=== PATIENT | male | born 1935 | race African-American/Black ===

== ENCOUNTER 2016-06-19 15:49 | Inpatient (IN) | payer MEDICARE, MEDICAID ==
[~2016-06-19] VITALS: Ht 188 cm; Wt 81.6 kg
[~2016-06-19 15:49] MED LIST: ARICEPT10 MG ORAL; BRIMONIDINE TART5 ML BOTH EYES; COSOPT1 DRO2 BOTH EYES; ISOPTO CARPINE1 DRO2 BOTH EYES; LACTULOSE20 GM/301 ORAL; LIPITOR20 MG ORAL; LUMIGAN2.5 ML BOTH EYES; MOM30 ML ORAL; MULTI-VITAMIN-1 EACH PO; NORVASC10 MG ORAL; RISPERDAL0.5 MG ORAL; TYLENOL325 MG ORAL; VASOTEC20 MG ORAL; VITAMIN C250 MG ORAL; ZINC SULFATE220 M1 ORAL; ZOLOFT100 MG ORAL
--- NOTE | 2016-06-19 16:47 | Diagnostic Imaging Report ---
Indication: Shortness of breath Technique: Single portable AP view of the chest. Findings: Comparison: None. Fusion hardware lower cervical spine. Aortic arch calcified. The bones and extra pulmonary soft tissues, cardiomediastinal silhouette, pulmonary vasculature and parenchyma, and pleural surfaces are otherwise unremarkable. IMPRESSION: No evidence of acute cardiopulmonary disease Chronic changes as described.
[2016-06-19] MEDS ORDERED: Albuterol ud Inhalation HHN ONE (17:00)
[2016-06-19] MEDS ORDERED: Solu-MEDROL 125mg Inj IVP ONE (17:00)
--- NOTE | 2016-06-19 17:03 | Emergency Room Report ---
History of Present Illness General Chief Complaint: Upper Respiratory Illness Source: Patient, EMS Present Illness HPI Patient presents with complaints of shortness of breath symptoms ongoing And worsening for the past several days Patient has a history of COPD at this time denies any chest pain Denies any back or flank pain Patient feels more short of breath with any exertion Denies any change with position Denies any fevers or chills Allergies: Coded Allergies: No Known Allergies (Unverified , 02/20/15) Patient History Past Medical History: see triage record Pertinent Family History: none Reviewed Nursing Documentation: PMH: Agreed, PSxH: Agreed Nursing Documentation-PMH Past Medical History: No History, Except For Hx Hypertension: Yes Hx COPD: Yes Hx Neurological Problems: Yes - CVA Hx Cerebrovascular Accident: Yes Hx Dementia: Yes Hx Encephalitis: Yes - encephalopathy Review of Systems All Other Systems: negative except mentioned in HPI Physical Exam Vital Signs Date Time Temp Pulse Resp B/P Pulse Ox O2 Delivery O2 Flow Rate FiO2 06/19/16 15:53 98.1 53 16 145/76 100 Room Air Sp02 EP Interpretation: reviewed, normal General Appearance: mild distress - appeared mildly short of breath Head: normocephalic, atraumatic Eyes: bilateral eye EOMI, bilateral eye PERRL ENT: hearing grossly normal, normal pharynx, TMs + canals normal, uvula midline Neck: full range of motion, supple, no meningismus, no bony tend Respiratory: no rhonchi, no retraction, no accessory muscle use, crackles - And wheezing bilateral lower lobes Cardiovascular #1: normal peripheral pulses, regular rate, rhythm, no edema, no gallop, no JVD, no murmur Gastrointestinal: normal bowel sounds, non tender, soft, no mass, no organomegaly, non-distended, no guarding, no hernia, no pulsatile mass, no rebound Genitourinary: no CVA tenderness Musculoskeletal: other - Patient has a pressure ulcer dressing in both feet and heels, is bed bound 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, motor strength/tone normal, sensory intact Psychiatric: mood/affect normal Skin: warm/dry, palpation normal Lymphatic: normal inspection, no adenopathy Medical Decision Making Diagnostic Impression: Primary Impression: COPD exacerbation ER Course Patient is a fairly complex patient with multiple differential to consideration including but not limited to cardiac cardiopulmonary and vascular emergencies Patient continued with a fine wheezing Feel short of breath Given the history and comorbidities Patient was admitted for further inpatient care Labs Test 06/19/16 16:45 White Blood Count 5.0 K/UL (4.8-10.8) Red Blood Count 4.45 M/UL (4.70-6.10) Hemoglobin 13.1 G/DL (14.2-18.0) Hematocrit 38.1 % (42.0-52.0) Mean Corpuscular Volume 86 FL (80-99) Mean Corpuscular Hemoglobin 29.4 PG (27.0-31.0) Mean Corpuscular Hemoglobin Concent 34.3 G/DL (32.0-36.0) Red Cell Distribution Width 15.5 % (11.6-14.8) Platelet Count 138 K/UL (150-450) Mean Platelet Volume 8.4 FL (6.5-10.1) Neutrophils (%) (Auto) 38.9 % (45.0-75.0) Lymphocytes (%) (Auto) 43.5 % (20.0-45.0) Monocytes (%) (Auto) 9.5 % (1.0-10.0) Eosinophils (%) (Auto) 6.0 % (0.0-3.0) Basophils (%) (Auto) 2.2 % (0.0-2.0) Prothrombin Time 10.7 SEC (9.30-11.50) Prothromb Time International Ratio 1.1 (0.9-1.1) Activated Partial Thromboplast Time 36 SEC (23-33) Sodium Level 134 mEQ/L (135-145) Potassium Level 4.6 mEQ/L (3.4-4.9) Chloride Level 96 mEQ/L (98-107) Carbon Dioxide Level 22 mEQ/L (20-30) Anion Gap 16 (5-15) Blood Urea Nitrogen 20 mg/dL (7-23) Creatinine 0.9 mg/dL (0.7-1.2) Estimat Glomerular Filtration Rate mL/min (>60) Glucose Level 101 mg/dL (74-106) Calcium Level 9.3 mg/dL (8.6-10.2) Total Bilirubin 0.1 mg/dL (0.0-1.2) Aspartate Amino Transf (AST/SGOT) 15 U/L (5-40) Alanine Aminotransferase (ALT/SGPT) 10 U/L (3-41) Alkaline Phosphatase 116 U/L (40-129) Total Creatine Kinase 69 U/L (26-140) Creatine Kinase MB < 1.5 ng/mL (< 6.7) Creatine Kinase MB Relative Index Troponin I < 0.30 ng/mL (<=0.30) Pro-B-Type Natriuretic Peptide 56 pg/mL (0-450) Total Protein 6.4 g/dL (6.6-8.7) Albumin 3.6 g/dL (3.5-5.2) Globulin 2.8 g/dL Albumin/Globulin Ratio 1.2 (1.0-2.7) Lipase 16 U/L (< 60) Rhythm Strip Diag. Results EP Interpretation: yes Rate: 67 Rhythm: NSR, no PVC's, no ectopy Chest X-Ray Diagnostic Results EP Interpretation: Yes Findings: no consolidation, no effusion, no pneumothorax Number of Views: 1 Last Vital Signs Date Time Temp Pulse Resp B/P Pulse Ox O2 Delivery O2 Flow Rate FiO2 06/19/16 15:53 98.1 53 16 145/76 100 Room Air Status: improved Disposition: ADMITTED INPATIENT Condition: Serious Referrals: SAVAGE MORRIS (PCP) LESLIE RDZ D.O. June 19, 2016 17:03
[2016-06-19 17:18] LABS: BASOPHILS % (AUTO) 2.2 % (0.0-2.0); LYMPHOCYTES % (AUTO) 43.5 % (20.0-45.0); MEAN CORPUSCULAR HEMOGLOBIN 29.4 PG (27.0-31.0); MEAN CORPUSCULAR HGB CONC 34.3 G/DL (32.0-36.0); MEAN CORPUSCULAR VOLUME 86 FL (80-99); MEAN PLATELET VOLUME 8.4 FL (6.5-10.1); MONOCYTES % (AUTO) 9.5 % (1.0-10.0); NEUTROPHILS % (AUTO) 38.9 % (45.0-75.0); PLATELET COUNT 138 K/UL (150-450); RED BLOOD COUNT 4.45 M/UL (4.70-6.10); RED CELL DISTRIBUTION WIDTH 15.5 % (11.6-14.8)
[2016-06-19 17:29] LABS: INR 1.1 (0.9-1.1); PROTHROMBIN TIME 10.7 SEC (9.30-11.50)
[2016-06-19] MEDS ORDERED: AMLODIPINE BES2.5 MG ORAL (17:31)
[2016-06-19] MEDS ORDERED: ASCORBIC ACID500 MG ORAL (17:31)
[2016-06-19] MEDS ORDERED: DEPAKOTE250 MG PO (17:34)
[2016-06-19] MEDS ORDERED: ZYPREXA10 MG ORAL (17:34)
[2016-06-19 17:37] LABS: TROPONIN I < 0.30 ng/mL (<=0.30)
[2016-06-19 18:02] LABS: CKMB < 1.5 ng/mL (< 6.7)
[2016-06-19 18:03] LABS: ANION GAP 16 (5-15); CARBON DIOXIDE 22 mEQ/L (20-30); CHLORIDE 96 mEQ/L (98-107); POTASSIUM 4.6 mEQ/L (3.4-4.9); SODIUM 134 mEQ/L (135-145)
[2016-06-19 18:04] LABS: ALANINE AMINOTRANSFERASE 10 U/L (3-41); ASPARTATE AMINO TRANSFERASE 15 U/L (5-40); CALCIUM 9.3 mg/dL (8.6-10.2); CREATININE 0.9 mg/dL (0.7-1.2)
[2016-06-19 18:05] LABS: ALBUMIN/GLOBULIN RATIO 1.2 (1.0-2.7); HEMOLYSIS 97; LIPASE 16 U/L (< 60); TOTAL PROTEIN 6.4 g/dL (6.6-8.7)
[2016-06-19 20:12] VITALS: BP 122/62
[2016-06-19 21:09] VITALS: BP 133/66
[2016-06-19] MEDS ORDERED: LORazepam Inj 2mg/ml 1ml IV PRN (21:45)
[2016-06-19] MEDS ORDERED: Promethazine/Codeine 5ml UD ORAL PRN (21:45)
[2016-06-19] MEDS ORDERED: DuoNeb 0.5-3(2.5)mg/3ml neb HHN PRN (21:45)
[2016-06-19] MEDS ORDERED: Morphine Sulfate 2mg/ml Inj IVP PRN (21:45)
[2016-06-19] MEDS ORDERED: Ketorolac 30mg Inj IV PRN (21:45)
[2016-06-19] MEDS ORDERED: Nitroglycerin Subl 0.4mg tab (Bottle Of 25) SL PRN (21:45)
[2016-06-19] MEDS ORDERED: Zosyn 3.375gm inj ONE (23:13)
[2016-06-19] MEDS: Piperacillin/Tazobactam 3.375 GM in D5W 110 ML IVPB SCH (23:24)
[2016-06-19] MEDS: Solu-MEDROL 125mg Inj IV SCH (23:25)
[2016-06-20] VITALS: BP 134/54
[2016-06-20 04:00] VITALS: BP 148/76
[2016-06-20] MEDS ORDERED: Zosyn 3.375gm inj ONE (05:44)
[2016-06-20] MEDS: Piperacillin/Tazobactam 3.375 GM in D5W 110 ML IVPB SCH ×2 (05:49→13:07)
[2016-06-20] MEDS: Solu-MEDROL 125mg Inj IV SCH ×4 (05:49→23:42)
[2016-06-20 07:48] VITALS: BP 152/65
[2016-06-20] MEDS: Sertraline 100mg tab ORAL SCH (08:20)
[2016-06-20] MEDS: Lactulose 20gm/30ml UDC ORAL SCH ×2 (08:20→17:37)
[2016-06-20] MEDS: Theophylline ER 100mg ORAL SCH ×2 (08:21→21:30)
[2016-06-20] MEDS: Donepezil 10mg tab ORAL SCH (08:21)
[2016-06-20] MEDS: Heparin 5000 units/ml inj SUBQ SCH ×2 (09:00→21:29)
[2016-06-20] MEDS: Brimonidine 0.2% Opth Sol BOTH EYES SCH ×2 (09:07→17:37)
[2016-06-20 11:26] VITALS: BP 136/62
--- NOTE | 2016-06-20 14:35 | Infectious Diseases Prog Note ---
Assessment/Plan Problems: (1) Foot ulcer Assessment & Plan: or the left heel, with infection of the soft tissue needs to rule out underlying osteomyelitis, will switch antibiotics to cefepime and flagyl, continue vancomycin, order MRI of the left foot to rule out osteomyelitis . (2) COPD exacerbation Assessment & Plan: on large dose of steroids, recommend to taper, continue bronchodialters and antibiotics, titrate oxygen as needed . (3) HTN (hypertension) Assessment & Plan: continue meds to keep SBP < 140 (4) Dementia Assessment & Plan: continue supportive care Subjective Allergies: Coded Allergies: No Known Allergies (Unverified , 02/20/15) Objective Vital Signs Last 24 Hour Vital Signs Date Time Temp Pulse Resp B/P Pulse Ox O2 Delivery O2 Flow Rate FiO2 06/20/16 11:26 97.3 65 14 136/62 96 Room Air 06/20/16 10:03 61 18 Room Air 06/20/16 08:21 59 152/65 06/20/16 07:48 97.5 59 15 152/65 97 Room Air 06/20/16 04:00 97.7 77 20 148/76 98 Room Air 06/20/16 00:00 97.5 66 20 134/54 98 Room Air 06/19/16 21:09 97.7 63 20 133/66 96 Room Air 06/19/16 20:12 97.8 64 16 122/62 95 Room Air 06/19/16 20:12 64 16 122/62 95 Room Air 06/19/16 17:56 66 18 100 Room Air 06/19/16 17:42 53 16 100 Room Air 06/19/16 17:39 55 18 Room Air 06/19/16 17:33 53 16 Room Air 06/19/16 15:53 98.1 53 16 145/76 100 Room Air Height (Feet): 6 Height (Inches): 2.00 Weight (Pounds): 180 Microbiology Date/Time Source Procedure Growth Status 06/19/16 22:30 Foot Left Gram Stain - Final Resulted 06/19/16 22:30 Foot Left Wound Culture Pending Resulted Laboratory Tests Test 06/19/16 16:45 White Blood Count 5.0 K/UL (4.8-10.8) Red Blood Count 4.45 M/UL (4.70-6.10) L Hemoglobin 13.1 G/DL (14.2-18.0) L Hematocrit 38.1 % (42.0-52.0) L Mean Corpuscular Volume 86 FL (80-99) Mean Corpuscular Hemoglobin 29.4 PG (27.0-31.0) Mean Corpuscular Hemoglobin Concent 34.3 G/DL (32.0-36.0) Red Cell Distribution Width 15.5 % (11.6-14.8) H Platelet Count 138 K/UL (150-450) L Mean Platelet Volume 8.4 FL (6.5-10.1) Neutrophils (%) (Auto) 38.9 % (45.0-75.0) L Lymphocytes (%) (Auto) 43.5 % (20.0-45.0) Monocytes (%) (Auto) 9.5 % (1.0-10.0) Eosinophils (%) (Auto) 6.0 % (0.0-3.0) H Basophils (%) (Auto) 2.2 % (0.0-2.0) H Prothrombin Time 10.7 SEC (9.30-11.50) Prothromb Time International Ratio 1.1 (0.9-1.1) Activated Partial Thromboplast Time 36 SEC (23-33) H Sodium Level 134 mEQ/L (135-145) L Potassium Level 4.6 mEQ/L (3.4-4.9) Chloride Level 96 mEQ/L (98-107) L Carbon Dioxide Level 22 mEQ/L (20-30) Anion Gap 16 (5-15) H Blood Urea Nitrogen 20 mg/dL (7-23) Creatinine 0.9 mg/dL (0.7-1.2) Estimat Glomerular Filtration Rate mL/min (>60) Glucose Level 101 mg/dL (74-106) Calcium Level 9.3 mg/dL (8.6-10.2) Total Bilirubin 0.1 mg/dL (0.0-1.2) Aspartate Amino Transf (AST/SGOT) 15 U/L (5-40) Alanine Aminotransferase (ALT/SGPT) 10 U/L (3-41) Alkaline Phosphatase 116 U/L (40-129) Total Creatine Kinase 69 U/L (26-140) Creatine Kinase MB < 1.5 ng/mL (< 6.7) Creatine Kinase MB Relative Index Troponin I < 0.30 ng/mL (<=0.30) Pro-B-Type Natriuretic Peptide 56 pg/mL (0-450) Total Protein 6.4 g/dL (6.6-8.7) L Albumin 3.6 g/dL (3.5-5.2) Globulin 2.8 g/dL Albumin/Globulin Ratio 1.2 (1.0-2.7) Lipase 16 U/L (< 60) Current Medications Medications (Trade) Dose Ordered Sig/Shanita Route PRN Reason Start Time Stop Time Status Last Admin Dose Admin Albuterol/ Ipratropium (DuoNeb 0.5-3(2.5)mg/3ml) 3 ml EVERY 4 HOURS PRN HHN dyspnea 06/19/16 21:45 06/24/16 21:44 Amlodipine Besylate (Norvasc) 7.5 mg DAILY ORAL 06/20/16 09:00 07/20/16 08:59 06/20/16 08:21 Brimonidine Tartrate (Alphagan) 1 drop BID BOTH EYES 06/20/16 09:00 07/20/16 08:59 06/20/16 09:07 Cefepime HCl/ Dextrose (Maxipime/D5W) 55 ml @ 110 mls/hr EVERY 12 HOURS IVPB 06/20/16 21:00 06/27/16 20:59 Dextrose STAT PRN IV Hypoglycemia 06/19/16 21:45 07/19/16 21:44 Divalproex Sodium (Depakote) 250 mg Q12HR ORAL 06/20/16 09:00 07/20/16 08:59 06/20/16 08:20 Donepezil HCl (Aricept) 10 mg DAILY ORAL 06/20/16 09:00 07/20/16 08:59 06/20/16 08:21 Heparin Sodium (Porcine) (Heparin 5000 units/ml) 5,000 units EVERY 12 HOURS SUBQ 06/20/16 09:00 07/20/16 08:59 Ketorolac Tromethamine (Toradol 30mg) 30 mg EVERY 8 HOURS PRN IV moderate pain 4-6 06/19/16 21:45 06/24/16 21:44 Lactulose (Cephulac) 20 gm BID ORAL 06/20/16 09:00 07/20/16 08:59 06/20/16 08:20 Lorazepam (Ativan 2mg/ml 1ml) 0.5 mg Q4H PRN IV For Anxiety 06/19/16 21:45 06/26/16 21:44 Methylprednisolone Sodium Succinate (Solu-MEDROL) 60 mg EVERY 6 HOURS IV 06/20/16 00:00 07/20/16 00:00 06/20/16 13:07 Metronidazole (Flagyl) 500 mg Q8HR ORAL 06/20/16 14:30 06/27/16 14:29 Morphine Sulfate (Morphine Sulfate) 2 mg EVERY 4 HOURS PRN IVP severe pain 7-10 06/19/16 21:45 06/26/16 21:44 Nitroglycerin (Ntg) 0.4 mg Q5M X 3 DOSES PRN SL Prn Chest Pain 06/19/16 21:45 07/19/16 21:44 Ondansetron HCl (Zofran) 4 mg Q6H PRN IVP Nausea & Vomiting 06/19/16 21:45 07/19/16 21:44 Promethazine HCl/ Codeine (Phenergan with Codeine) 5 ml EVERY 6 HOURS PRN ORAL cough 06/19/16 21:45 07/19/16 21:44 Sertraline HCl (Zoloft) 100 mg DAILY ORAL 06/20/16 09:00 07/20/16 08:59 06/20/16 08:20 Temazepam (Restoril) 15 mg HSPRN PRN ORAL Insomnia 06/19/16 21:45 06/26/16 21:44 Theophylline (Martínez-Dur) 100 mg EVERY 12 HOURS ORAL 06/20/16 09:00 07/20/16 08:59 06/20/16 08:21 Vancomycin HCl (Vanco rx to dose) 1 ea DAILY PRN MISC . 06/20/16 14:30 07/20/16 14:29 Vancomycin HCl 1 gm/Dextrose 275 ml @ 183.708 mls/hr Q12H IVPB 06/20/16 16:00 06/25/16 15:59 Leann Dubon M.D. June 20, 2016 14:35
--- NOTE | 2016-06-20 14:46 | Wound Care Consultation ---
Wound Assessment Wound Assessment : Wound Present on Admission: Yes New Wound: No Status Change of Wound: No Wound Location Body Site Modif: left Wound Location Body Site: heel Wound Type: pressure ulcer Becky Test: Does not Becky Pressure Ulcer Stage: IV/unstageable Wound Thickness: Full Thickness Wound Length: 2.5 Wound Width: 2.5 Wound Depth: utd Percent of Wound Bed Yellow/Wh: 100 Wound Drainage Description: Serosanguineous Wound Drainage Amount: Moderate Wound Drainage Odor: Mild Odor Tissue Surrounding Wound: Macerated Wound General Appearance: Draining Wound Comment #1 Left heel stage IV/unstageable pressure ulcer Recommendation -Left heel pressure ulcer Cleanse with saline, pat dry, apply Therahoney gel to wound bed, cover with 4x4 , secure with bordered gauze daily and PRN soiled/dislodged -Keep clean and dry -Turn and reposition -Low air loss overlay mattress -Optimize nutrition -Heel protector on both heels -Offload both heels -Assess and f/u accordingly for any changes AISHA CHAVARRIA RN June 20, 2016 14:46
[2016-06-20] MEDS: metroNIDAZOLE 500mg tab ORAL SCH ×2 (15:18→21:30)
[2016-06-20] MEDS: Vancomycin 1 GM in D5W 275 ML IVPB SCH (15:18)
[2016-06-20 15:40] VITALS: BP 144/76
[2016-06-20] MEDS ORDERED: Tubing IV Secondary IV ONE (16:20)
[2016-06-20] MEDS ORDERED: NS 275ml ONE (16:20)
[2016-06-20 20:00] VITALS: BP 125/58
[2016-06-20] MEDS: Cefepime HCl 1 GM in D5W 55 ML IVPB SCH (20:36)
--- NOTE | 2016-06-20 20:36 | Consultation ---
History of Present Illness General Date patient seen: June 20, 2016 Chief Complaint: Upper Respiratory Illness Referring physician: Dr. Hanson Reason for Consultation: COPD management Present Illness HPI 80 year old male with hx of COPD, [facility] presented to ER with complaints of shortness of breath, worsening for the past several days Patient feels more short of breath with any exertion. Denies any chest pain, fever. Allergies: Coded Allergies: No Known Allergies (Unverified , 02/20/15) Medication History Scheduled Amlodipine Besylate* (Amlodipine Besylate*), 7.5 MG ORAL DAILY, (Reported) Ascorbic Acid* (Ascorbic Acid*), 500 MG ORAL DAILY, (Reported) Brimonidine Tartrate* (Alphagan*), 1 DROP BOTH EYES BID, (Reported) Divalproex Sodium* (Depakote*), 250 MG PO Q12HR, (Reported) Donepezil Hcl* (Aricept*), 10 MG ORAL HS, (Reported) Lactulose (Lactulose*), 30 ML ORAL BID, (Reported) Olanzapine* (Zyprexa*), 10 MG ORAL BID, (Reported) Sertraline Hcl* (Zoloft*), 100 MG ORAL DAILY, (Reported) Miscellaneous Medications Dorzolamide HCl/Timolol Maleat (Dorzolamide-Timolol Eye Drops), 1 DROP BOTH EYES , (Reported) Multivit-Min/Iron Fum/Folic AC (Kosta-Evvgscr-Dxnudsbn Tablet), 1 EACH PO, ( Reported) Discontinued Medications Acetaminophen (Tylenol), 650 MG ORAL Q4HR PRN for Fever/Headache/Mild Pain, ( Reported) Discontinued Reason: MD discontinued med Ascorbic Acid* (Vitamin C*), 250 MG ORAL TWICE A DAY, (Reported) Discontinued Reason: Medication dose changed Atorvastatin Calcium* (Lipitor*), 20 MG ORAL BEDTIME, (Reported) Discontinued Reason: MD discontinued med Bimatoprost (Lumigan), 1 DROP BOTH EYES DAILY, (Reported) Discontinued Reason: MD discontinued med Enalapril Maleate* (Vasotec*), 40 MG ORAL DAILY, (Reported) Discontinued Reason: MD discontinued med Magnesium Hydroxide (Milk of Magnesia), 30 ML ORAL DAILY, (Reported) Discontinued Reason: MD discontinued med Pilocarpine (Pilocarpine HCl), 1 DROP BOTH EYES BID, (Reported) Discontinued Reason: MD discontinued med Risperidone* (Risperdal*), 0.5 MG ORAL HS, (Reported) Discontinued Reason: discontinued med Zinc Sulfate (Zinc Sulfate*), 220 MG ORAL DAILY, (Reported) Discontinued Reason: MD discontinued med Patient History Healthcare decision maker pt A&Ox4 Resuscitation status Full Code Advanced Directive on File Past Medical/Surgical History Past Medical/Surgical History: (1) HTN (hypertension) (2) Dementia Review of Systems All Other Systems: negative except mentioned in HPI Physical Exam General Appearance: WD/WN Lines, tubes and drains: peripheral HEENT: normocephalic, atraumatic Neck: non-tender, normal alignment Respiratory/Chest: chest wall non-tender, lungs clear Cardiovascular/Chest: normal peripheral pulses, normal rate Abdomen: normal bowel sounds Genitourinary/Rectal: normal genital exam Extremities: normal range of motion Skin Exam: normal pigmentation 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 Last 24 Hour Vital Signs Date Time Temp Pulse Resp B/P Pulse Ox O2 Delivery O2 Flow Rate FiO2 06/20/16 20:00 97.5 62 20 125/58 95 Room Air 06/20/16 19:50 58 18 Room Air 06/20/16 15:40 97.0 71 15 144/76 98 Room Air 06/20/16 11:26 97.3 65 14 136/62 96 Room Air 06/20/16 10:03 61 18 Room Air 06/20/16 08:21 59 152/65 06/20/16 07:48 97.5 59 15 152/65 97 Room Air 06/20/16 04:00 97.7 77 20 148/76 98 Room Air 06/20/16 00:00 97.5 66 20 134/54 98 Room Air 06/19/16 21:09 97.7 63 20 133/66 96 Room Air Intake and Output 06/19/16 06/20/16 19:00 07:00 Intake Total 257.5 ml Balance 257.5 ml Intake Oral 120 ml IV Total 137.5 ml # Voids 1 Microbiology Date/Time Source Procedure Growth Status 06/19/16 22:30 Foot Left Gram Stain - Final Resulted 06/19/16 22:30 Foot Left Wound Culture Pending Resulted Height (Feet): 6 Height (Inches): 2.00 Weight (Pounds): 180 Medications Current Medications Medications (Trade) Dose Ordered Sig/Shanita Route PRN Reason Start Time Stop Time Status Last Admin Dose Admin Albuterol/ Ipratropium (DuoNeb 0.5-3(2.5)mg/3ml) 3 ml EVERY 4 HOURS PRN HHN dyspnea 06/19/16 21:45 06/24/16 21:44 Amlodipine Besylate (Norvasc) 7.5 mg DAILY ORAL 06/20/16 09:00 07/20/16 08:59 06/20/16 08:21 Brimonidine Tartrate (Alphagan) 1 drop BID BOTH EYES 06/20/16 09:00 07/20/16 08:59 06/20/16 17:37 Cefepime HCl/ Dextrose (Maxipime/D5W) 55 ml @ 110 mls/hr EVERY 12 HOURS IVPB 06/20/16 21:00 06/27/16 20:59 Dextrose STAT PRN IV Hypoglycemia 06/19/16 21:45 07/19/16 21:44 Divalproex Sodium (Depakote) 250 mg Q12HR ORAL 06/20/16 09:00 07/20/16 08:59 06/20/16 08:20 Donepezil HCl (Aricept) 10 mg DAILY ORAL 06/20/16 09:00 07/20/16 08:59 06/20/16 08:21 Heparin Sodium (Porcine) (Heparin 5000 units/ml) 5,000 units EVERY 12 HOURS SUBQ 06/20/16 09:00 07/20/16 08:59 Ketorolac Tromethamine (Toradol 30mg) 30 mg EVERY 8 HOURS PRN IV moderate pain 4-6 06/19/16 21:45 06/24/16 21:44 Lactulose (Cephulac) 20 gm BID ORAL 06/20/16 09:00 07/20/16 08:59 06/20/16 17:37 Lorazepam (Ativan 2mg/ml 1ml) 0.5 mg Q4H PRN IV For Anxiety 06/19/16 21:45 06/26/16 21:44 Methylprednisolone Sodium Succinate (Solu-MEDROL) 60 mg EVERY 6 HOURS IV 06/20/16 00:00 07/20/16 00:00 06/20/16 17:37 Metronidazole (Flagyl) 500 mg Q8HR ORAL 06/20/16 14:30 06/27/16 14:29 06/20/16 15:18 Morphine Sulfate (Morphine Sulfate) 2 mg EVERY 4 HOURS PRN IVP severe pain 7-10 06/19/16 21:45 06/26/16 21:44 Nitroglycerin (Ntg) 0.4 mg Q5M X 3 DOSES PRN SL Prn Chest Pain 06/19/16 21:45 07/19/16 21:44 Ondansetron HCl (Zofran) 4 mg Q6H PRN IVP Nausea & Vomiting 06/19/16 21:45 07/19/16 21:44 Promethazine HCl/ Codeine (Phenergan with Codeine) 5 ml EVERY 6 HOURS PRN ORAL cough 06/19/16 21:45 07/19/16 21:44 Sertraline HCl (Zoloft) 100 mg DAILY ORAL 06/20/16 09:00 07/20/16 08:59 06/20/16 08:20 Temazepam (Restoril) 15 mg HSPRN PRN ORAL Insomnia 06/19/16 21:45 06/26/16 21:44 Theophylline (Martínez-Dur) 100 mg EVERY 12 HOURS ORAL 06/20/16 09:00 07/20/16 08:59 06/20/16 08:21 Vancomycin HCl (Vanco rx to dose) 1 ea DAILY PRN MISC . 06/20/16 14:30 07/20/16 14:29 Vancomycin HCl 1 gm/Dextrose 275 ml @ 183.708 mls/hr Q12H IVPB 06/20/16 16:00 06/25/16 15:59 06/20/16 15:18 Assessment/Plan Problem List: (1) COPD exacerbation ICD Codes: J44.1 - Chronic obstructive pulmonary disease with (acute) exacerbation SNOMED: 034328544, 461764738 (2) HTN (hypertension) ICD Codes: I10 - Essential (primary) hypertension SNOMED: 86163721 (3) Dementia ICD Codes: F03.90 - Unspecified dementia without behavioral disturbance SNOMED: 34611224 Assessment/Plan respiratory treatment check sputum titrate fio2 to sat of 92% steroids dvt prophylaxis pt/ot ORACIO MIRANDA June 20, 2016 20:36
--- NOTE | 2016-06-20 21:49 | History and Physical Report ---
DATE OF ADMISSION: 06/19/2016 TIME: 1 p.m. CONSULTANTS: 1. Jef Johnson M.D. 2. Mouna Bruce M.D. CHIEF COMPLAINT: Increased shortness of breath, weakness, and confusion. BRIEF HISTORY: This is a 80-year-old male from [facility] presented with above-mentioned diagnoses and diagnoses of COPD exacerbation, encephalopathy, and congestion, admitted to medical floor for further care. Currently, calm, resting in bed, but no complaints. PAST MEDICAL HISTORY: Hypertension, COPD, and encephalopathy. PAST SURGICAL HISTORY: Back surgery. MEDICATIONS: Norvasc, Alphagan, Depakote, Aricept, Cephulac, heparin, Martínez-Dur, Solu-Medrol, and Zosyn. ALLERGIES: Denies. SOCIAL HISTORY: No smoking. No alcohol. No intravenous drug abuse. FAMILY HISTORY: Noncontributory. REVIEW OF SYSTEMS: No chest pain. Slight short of breath. No nausea, vomiting or diarrhea. PHYSICAL EXAMINATION: GENERAL: The patient is currently calm in bed, oriented x1, no acute distress. VITAL SIGNS: Temperature 97 degrees, pulse 55, respiratory rate 14, and blood pressure 136/62. CARDIOVASCULAR: No murmur. LUNGS: Poor air exchange. ABDOMEN: Positive bowel sounds. Nontender. Nondistended. EXTREMITIES: No cyanosis, clubbing, or edema. NEUROLOGIC: The patient moves all extremities, slightly weak. LABORATORY AND DIAGNOSTIC DATA: Hemoglobin 13 and platelet 138,000, otherwise CBC is normal. BMP shows sodium 134 and chloride 96, otherwise normal. Troponin is less than 0.3. INR is 1.1. PTT is 36. ASSESSMENT: 1. Shortness of breath. 2. Chronic obstructive pulmonary disease exacerbation. 3. Congestion. 4. Anemia. 5. Hypertension. 6. Encephalopathy. PLAN: O2 and pulmonary treatment. Antibiotics per Infectious Disease p.r.n. OT/PT. Dietary evaluation. CBC and BMP in the morning. Resume home medications. Blood pressure control and taper off steroids if possible. Dr. Johnson, Dr. Bruce and Dr. Dubon to consult. Vincent Hanson D.O. DR: FIFI JOB#: [id number] CC:
--- NOTE | 2016-06-20 23:48 | Consultation ---
DATE OF CONSULTATION: INFECTIOUS DISEASE CONSULTATION REQUESTING PHYSICIAN: Vincent Hanson D.O. REASON FOR CONSULTATION: Left heel wound infection. Recommendation for antibiotics therapy. HISTORY OF PRESENT ILLNESS: The patient is a 80-year-old male with past medical history of dementia, CVA, and COPD, was sent from [facility] facility for worsening shortness of breath and left ankle wound. The patient had history of COPD and lately he has been more short of breath. Denied any chest pain, did have cough, but nonproductive. No fever or chills. No nausea or vomiting. The patient had left heel wound, which has been getting bigger with pus and exudate in the base of the wound, so he was sent to the emergency room for further evaluation and management. I was asked by the primary provider for antibiotics recommendation and further management of his left heel wound infection. REVIEW OF SYSTEMS: A 12-point of system reviewed were all negative apart from the one I mentioned above in my History and Physical PAST MEDICAL HISTORY: Significant for hypertension, COPD, CVA, dementia, and encephalitis. PAST SURGICAL HISTORY: Unable to obtain. MEDICATIONS: He is on Zosyn and vancomycin by the admitting physician. For further details, please refer to MAR. ALLERGIES: He has no known drug allergy. SOCIAL HISTORY: He lives at the correction facility. No recent drugs, tobacco, or alcohol. FAMILY HISTORY: Not contributory. PHYSICAL EXAMINATION: VITAL SIGNS: Temperature 97.3 degrees, pulse 65, respirations 14, blood pressure 136/62, and pulse oximetry 96% on room air. GENERAL: This is an elderly male, lying in bed, awake, alert, not in distress. HEENT: Normocephalic and atraumatic. Pupils are reactive to light. Dry oral mucosa. Poor dental hygiene. NECK: Supple. No lymphadenopathy. CARDIOVASCULAR: Regular rate and rhythm. No murmurs. LUNGS: He had wheezing and diminished breathing sounds in the bases. ABDOMEN: Obese, soft, nontender, and nondistended. Positive bowel sounds. No hepatosplenomegaly or ascites. EXTREMITIES: He had muscle atrophy, left heel medial wound 2 x 2 cm stage III with pus, necrosis, and exudate in the base of the wound. LABORATORY AND DIAGNOSTIC DATA: Showed white count of 5, hemoglobin of 13.1, and platelet count of 138,000. BUN of 20, creatinine 0.9. AST of 15, ALT of 10, alkaline phosphatase of 116. Microbiology wound culture is pending. Imaging, chest x-ray showed no evidence of acute cardiopulmonary disease. ASSESSMENT AND PLAN: 1. Left heel wound infection due to rule out underlying osteomyelitis. We will switch antibiotics to cefepime and Flagyl. Continue vancomycin. Order MRI of the left foot to rule out osteomyelitis and sedimentation rate. 2. Chronic obstructive pulmonary disease exacerbation on large dose of steroid recommend to taper continue bronchodilators and antibiotics. Titrate oxygen as needed. 3. Hypertension. Continue medications to keep systolic blood pressure less than 140. 4. Dementia, continue supportive care and psychiatric medications as needed. Thank you for the consult. ID will continue to follow. Leann Dubon M.D. DR: Cheli JOB#: [id number] CC:
[2016-06-21] VITALS: BP_SYST 107; BP_SYST 135; BP_DIAS 76
[2016-06-21 04:00] VITALS: BP 127/62
[2016-06-21] MEDS: Vancomycin 1 GM in D5W 275 ML IVPB SCH ×2 (04:14→15:51)
[2016-06-21] MEDS: Solu-MEDROL 125mg Inj IV SCH ×3 (05:52→17:20)
[2016-06-21] MEDS: metroNIDAZOLE 500mg tab ORAL SCH ×3 (05:52→21:16)
[2016-06-21 07:11] LABS: ANION GAP 16 (5-15); CARBON DIOXIDE 22 mEQ/L (20-30); CHLORIDE 95 mEQ/L (98-107); HEMOLYSIS 2; MEAN CORPUSCULAR HEMOGLOBIN 27.5 PG (27.0-31.0); MEAN CORPUSCULAR HGB CONC 32.6 G/DL (32.0-36.0); MEAN CORPUSCULAR VOLUME 84 FL (80-99); MEAN PLATELET VOLUME 9.3 FL (6.5-10.1); PLATELET COUNT 178 K/UL (150-450); POTASSIUM 4.3 mEQ/L (3.4-4.9); RED BLOOD COUNT 4.74 M/UL (4.70-6.10); RED CELL DISTRIBUTION WIDTH 15.6 % (11.6-14.8); SODIUM 133 mEQ/L (135-145); WHITE BLOOD COUNT 11.6 K/UL (4.8-10.8)
[2016-06-21 08:10] VITALS: BP 134/65
--- NOTE | 2016-06-21 08:32 | General Progress Note ---
Assessment/Plan Problem List: (1) COPD exacerbation ICD Codes: J44.1 - Chronic obstructive pulmonary disease with (acute) exacerbation SNOMED: 293823159, 394239330 (2) Dementia ICD Codes: F03.90 - Unspecified dementia without behavioral disturbance SNOMED: 07605745 (3) HTN (hypertension) ICD Codes: I10 - Essential (primary) hypertension SNOMED: 93234800 Status: stable, progressing, tolerating diet Assessment/Plan ot pt diet o2 pulm abx cbc bmp am Subjective Constitutional: Reports: weakness Allergies: Coded Allergies: No Known Allergies (Unverified , 02/20/15) All Systems: reviewed and negative except above Subjective sleepy calm Objective Last 24 Hour Vital Signs Date Time Temp Pulse Resp B/P Pulse Ox O2 Delivery O2 Flow Rate FiO2 06/21/16 08:10 98.2 67 20 134/65 97 Room Air 06/21/16 04:00 98.2 75 19 127/62 97 Room Air 06/21/16 00:00 98.5 70 19 135/76 95 Room Air 06/20/16 20:00 97.5 62 20 125/58 95 Room Air 06/20/16 19:50 58 18 Room Air 06/20/16 15:40 97.0 71 15 144/76 98 Room Air 06/20/16 11:26 97.3 65 14 136/62 96 Room Air 06/20/16 10:03 61 18 Room Air Intake and Output 06/20/16 06/21/16 19:00 07:00 Intake Total 1357.500 ml 477.416 ml Balance 1357.500 ml 477.416 ml Intake Oral 1000 ml IV Total 357.500 ml 477.416 ml # Voids 2 2 # Bowel Movements 1 1 Laboratory Tests 06/21/16 06:05: White Blood Count 11.6H, Red Blood Count 4.74, Hemoglobin 13.1L, Hematocrit 40.0L, Mean Corpuscular Volume 84, Mean Corpuscular Hemoglobin 27.5, Mean Corpuscular Hemoglobin Concent 32.6, Red Cell Distribution Width 15.6H, Platelet Count 178, Mean Platelet Volume 9.3, Neutrophils (%) (Auto) , Lymphocytes (%) (Auto) , Monocytes (%) (Auto) , Eosinophils (%) (Auto) , Basophils (%) (Auto) , Neutrophils % (Manual) [Pending], Lymphocytes % (Manual) [Pending], Platelet Estimate [Pending], Platelet Morphology [Pending], Sodium Level 133L, Potassium Level 4.3, Chloride Level 95L, Carbon Dioxide Level 22, Anion Gap 16H, Blood Urea Nitrogen 32H, Creatinine 1.0, Estimat Glomerular Filtration Rate , Glucose Level 233H, Calcium Level 10.0 Height (Feet): 6 Height (Inches): 2.00 Weight (Pounds): 180 General Appearance: lethargic EENT: normal ENT inspection Neck: normal alignment Cardiovascular: normal peripheral pulses, normal rate, regular rhythm Respiratory/Chest: chest wall non-tender, lungs clear, normal breath sounds Abdomen: normal bowel sounds, non tender, soft Extremities: normal inspection Edema: no edema noted Arm (L), no edema noted Arm (R), no edema noted Leg (L), no edema noted Leg (R), no edema noted Pedal (L), no edema noted Pedal (R), no edema noted Generalized Neurologic: motor weakness Skin: normal pigmentation, warm/dry SAVAGE MORRIS June 21, 2016 08:32
[2016-06-21] MEDS: Lactulose 20gm/30ml UDC ORAL SCH ×2 (08:46→17:11)
[2016-06-21] MEDS: Sertraline 100mg tab ORAL SCH (08:46)
[2016-06-21] MEDS: Donepezil 10mg tab ORAL SCH (08:46)
[2016-06-21] MEDS: Theophylline ER 100mg ORAL SCH ×2 (08:46→21:16)
[2016-06-21] MEDS: Cefepime HCl 1 GM in D5W 55 ML IVPB SCH ×2 (08:46→21:16)
[2016-06-21] MEDS: Brimonidine 0.2% Opth Sol BOTH EYES SCH ×2 (08:46→17:20)
[2016-06-21] MEDS: Heparin 5000 units/ml inj SUBQ SCH ×2 (08:51→21:19)
[2016-06-21 10:56] LABS: ANISOCYTOSIS 1+; BAND NEUTROPHILS % (MANUAL) 0 % (0-8); BASOPHILS % (MANUAL) 0 % (0-2); EOSINOPHILS % (MANUAL) 0 % (0-3); LYMPHOCYTES % (MANUAL) 13 % (20-45); NEUTROPHILS % (MANUAL) 80 % (45-75); PLATELET ESTIMATE ADEQUATE; PLATELET MORPHOLOGY NORMAL; TOTAL CELLS COUNTED 100
[2016-06-21 11:33] VITALS: BP 129/59
--- NOTE | 2016-06-21 14:36 | Infectious Diseases Prog Note ---
Assessment/Plan Problems: (1) Foot ulcer Assessment & Plan: on the left heel, with infection of the soft tissue needs to rule out underlying osteomyelitis, on cefepime, flagyl, and vancomycin, order MRI of the left foot to rule out osteomyelitis . (2) COPD exacerbation Assessment & Plan: on large dose of steroids, recommend to taper, continue bronchodialters and antibiotics, titrate oxygen as needed . (3) HTN (hypertension) Assessment & Plan: continue meds to keep SBP < 140 (4) Dementia Assessment & Plan: continue supportive care Subjective Constitutional: Reports: no symptoms HEENT: Reports: no symptoms Respiratory: Reports: no symptoms Cardiovascular: Reports: no symptoms Gastrointestinal/Abdominal: Reports: no symptoms Genitourinary: Reports: no symptoms Neurologic: Reports: no symptoms Psychiatric: Reports: no symptoms Skin: Reports: ulcer Allergies: Coded Allergies: No Known Allergies (Unverified , 02/20/15) Objective Vital Signs Last 24 Hour Vital Signs Date Time Temp Pulse Resp B/P Pulse Ox O2 Delivery O2 Flow Rate FiO2 06/21/16 11:33 97.9 61 20 129/59 96 Room Air 06/21/16 08:46 67 134/65 06/21/16 08:10 98.2 67 20 134/65 97 Room Air 06/21/16 08:02 69 18 Room Air 06/21/16 04:00 98.2 75 19 127/62 97 Room Air 06/21/16 00:00 98.5 70 19 135/76 95 Room Air 06/20/16 20:00 97.5 62 20 125/58 95 Room Air 06/20/16 19:50 58 18 Room Air 06/20/16 15:40 97.0 71 15 144/76 98 Room Air Height (Feet): 6 Height (Inches): 2.00 Weight (Pounds): 180 General Appearance: WD/WN, no acute distress HEENT: normocephalic, atraumatic, anicteric, mucous membranes moist Respiratory/Chest: chest wall non-tender, lungs clear, normal breath sounds, no respiratory distress, no accessory muscle use Cardiovascular: normal peripheral pulses, normal rate, regular rhythm Abdomen: normal bowel sounds, soft, non tender, no organomegaly, non distended Extremities: no cyanosis, no clubbing Skin: ulcers Microbiology Date/Time Source Procedure Growth Status 06/19/16 16:45 Blood Blood Culture - Preliminary NO GROWTH AFTER 24 HOURS Resulted 06/19/16 16:35 Blood Blood Culture - Preliminary NO GROWTH AFTER 24 HOURS Resulted 06/19/16 19:37 Nasal Nares MRSA Culture - Final NO METHICILLIN RESISTANT STAPH AUREUS... Complete 06/19/16 22:30 Foot Left Gram Stain - Final Resulted 06/19/16 22:30 Foot Left Wound Culture - Preliminary Resulted Laboratory Tests Test 06/21/16 06:05 White Blood Count 11.6 K/UL (4.8-10.8) H Red Blood Count 4.74 M/UL (4.70-6.10) Hemoglobin 13.1 G/DL (14.2-18.0) L Hematocrit 40.0 % (42.0-52.0) L Mean Corpuscular Volume 84 FL (80-99) Mean Corpuscular Hemoglobin 27.5 PG (27.0-31.0) Mean Corpuscular Hemoglobin Concent 32.6 G/DL (32.0-36.0) Red Cell Distribution Width 15.6 % (11.6-14.8) H Platelet Count 178 K/UL (150-450) Mean Platelet Volume 9.3 FL (6.5-10.1) Neutrophils (%) (Auto) % (45.0-75.0) Lymphocytes (%) (Auto) % (20.0-45.0) Monocytes (%) (Auto) % (1.0-10.0) Eosinophils (%) (Auto) % (0.0-3.0) Basophils (%) (Auto) % (0.0-2.0) Differential Total Cells Counted 100 Neutrophils % (Manual) 80 % (45-75) H Lymphocytes % (Manual) 13 % (20-45) L Monocytes % (Manual) 7 % (1-10) Eosinophils % (Manual) 0 % (0-3) Basophils % (Manual) 0 % (0-2) Band Neutrophils 0 % (0-8) Platelet Estimate Adequate Platelet Morphology Normal Anisocytosis 1+ Sodium Level 133 mEQ/L (135-145) L Potassium Level 4.3 mEQ/L (3.4-4.9) Chloride Level 95 mEQ/L (98-107) L Carbon Dioxide Level 22 mEQ/L (20-30) Anion Gap 16 (5-15) H Blood Urea Nitrogen 32 mg/dL (7-23) H Creatinine 1.0 mg/dL (0.7-1.2) Estimat Glomerular Filtration Rate mL/min (>60) Glucose Level 233 mg/dL (74-106) H Calcium Level 10.0 mg/dL (8.6-10.2) Current Medications Medications (Trade) Dose Ordered Sig/Shanita Route PRN Reason Start Time Stop Time Status Last Admin Dose Admin Albuterol/ Ipratropium (DuoNeb 0.5-3(2.5)mg/3ml) 3 ml EVERY 4 HOURS PRN HHN dyspnea 06/19/16 21:45 06/24/16 21:44 Amlodipine Besylate (Norvasc) 7.5 mg DAILY ORAL 06/20/16 09:00 07/20/16 08:59 06/21/16 08:46 Brimonidine Tartrate (Alphagan) 1 drop BID BOTH EYES 06/20/16 09:00 07/20/16 08:59 06/21/16 08:46 Cefepime HCl/ Dextrose (Maxipime/D5W) 55 ml @ 110 mls/hr EVERY 12 HOURS IVPB 06/20/16 21:00 06/27/16 20:59 06/21/16 08:46 Dextrose STAT PRN IV Hypoglycemia 06/19/16 21:45 07/19/16 21:44 Divalproex Sodium (Depakote) 250 mg Q12HR ORAL 06/20/16 09:00 07/20/16 08:59 06/21/16 08:47 Donepezil HCl (Aricept) 10 mg DAILY ORAL 06/20/16 09:00 07/20/16 08:59 06/21/16 08:46 Heparin Sodium (Porcine) (Heparin 5000 units/ml) 5,000 units EVERY 12 HOURS SUBQ 06/20/16 09:00 07/20/16 08:59 06/21/16 08:51 Ketorolac Tromethamine (Toradol 30mg) 30 mg EVERY 8 HOURS PRN IV moderate pain 4-6 06/19/16 21:45 06/24/16 21:44 Lactulose (Cephulac) 20 gm BID ORAL 06/20/16 09:00 07/20/16 08:59 06/21/16 08:46 Lorazepam (Ativan 2mg/ml 1ml) 0.5 mg Q4H PRN IV For Anxiety 06/19/16 21:45 06/26/16 21:44 Methylprednisolone Sodium Succinate (Solu-MEDROL) 60 mg EVERY 6 HOURS IV 06/20/16 00:00 07/20/16 00:00 06/21/16 13:04 Metronidazole (Flagyl) 500 mg Q8HR ORAL 06/20/16 14:30 06/27/16 14:29 06/21/16 13:04 Morphine Sulfate (Morphine Sulfate) 2 mg EVERY 4 HOURS PRN IVP severe pain 7-10 06/19/16 21:45 06/26/16 21:44 Nitroglycerin (Ntg) 0.4 mg Q5M X 3 DOSES PRN SL Prn Chest Pain 06/19/16 21:45 07/19/16 21:44 Ondansetron HCl (Zofran) 4 mg Q6H PRN IVP Nausea & Vomiting 06/19/16 21:45 07/19/16 21:44 Promethazine HCl/ Codeine (Phenergan with Codeine) 5 ml EVERY 6 HOURS PRN ORAL cough 06/19/16 21:45 07/19/16 21:44 Sertraline HCl (Zoloft) 100 mg DAILY ORAL 06/20/16 09:00 07/20/16 08:59 06/21/16 08:46 Temazepam (Restoril) 15 mg HSPRN PRN ORAL Insomnia 06/19/16 21:45 06/26/16 21:44 Theophylline (Martínez-Dur) 100 mg EVERY 12 HOURS ORAL 06/20/16 09:00 07/20/16 08:59 06/21/16 08:46 Vancomycin HCl (Vanco rx to dose) 1 ea DAILY PRN MISC . 06/20/16 14:30 07/20/16 14:29 Vancomycin HCl 1 gm/Dextrose 275 ml @ 183.708 mls/hr Q12H IVPB 06/20/16 16:00 06/25/16 15:59 06/21/16 04:14 Leann Dubon M.D. June 21, 2016 14:36
[2016-06-21] MEDS ORDERED: Tubing IV Secondary IV ONE (15:36)
[2016-06-21] MEDS ORDERED: NS 550ML IV ONE (15:36)
[2016-06-21 15:48] VITALS: BP 136/75
[2016-06-21 20:00] VITALS: BP 126/55
--- NOTE | 2016-06-21 22:04 | Pulmonology Progress Note ---
Assessment/Plan Problems: (1) COPD exacerbation (2) HTN (hypertension) (3) Dementia (4) Foot ulcer Assessment/Plan respiratory treatment IV antibiotics check cultures dvt prophylaxis Podiatry note appreciated Subjective ROS Limited/Unobtainable: Yes Allergies: Coded Allergies: No Known Allergies (Unverified , 02/20/15) Objective Last 24 Hour Vital Signs Date Time Temp Pulse Resp B/P Pulse Ox O2 Delivery O2 Flow Rate FiO2 06/21/16 21:36 64 17 Room Air 06/21/16 20:00 96.1 59 17 126/55 97 Room Air 06/21/16 15:48 98.0 58 21 136/75 97 Room Air 06/21/16 11:33 97.9 61 20 129/59 96 Room Air 06/21/16 08:46 67 134/65 06/21/16 08:10 98.2 67 20 134/65 97 Room Air 06/21/16 08:02 69 18 Room Air 06/21/16 04:00 98.2 75 19 127/62 97 Room Air 06/21/16 00:00 98.5 70 19 135/76 95 Room Air Intake and Output 06/20/16 06/21/16 19:00 07:00 Intake Total 1357.500 ml 477.416 ml Balance 1357.500 ml 477.416 ml Intake Oral 1000 ml IV Total 357.500 ml 477.416 ml # Voids 2 2 # Bowel Movements 1 1 Objective General Appearance: WD/WN Lines, tubes and drains: peripheral HEENT: normocephalic, atraumatic Neck: non-tender, normal alignment Respiratory/Chest: chest wall non-tender Cardiovascular/Chest: normal peripheral pulses Abdomen: normal bowel sounds Genitourinary/Rectal: normal genital exam Extremities: normal range of motion, left foot ulcer Skin Exam: normal pigmentation Microbiology Date/Time Source Procedure Growth Status 06/19/16 16:45 Blood Blood Culture - Preliminary NO GROWTH AFTER 24 HOURS Resulted 06/19/16 16:35 Blood Blood Culture - Preliminary NO GROWTH AFTER 24 HOURS Resulted 06/19/16 19:37 Nasal Nares MRSA Culture - Final NO METHICILLIN RESISTANT STAPH AUREUS... Complete 06/19/16 22:30 Foot Left Gram Stain - Final Resulted 06/19/16 22:30 Foot Left Wound Culture - Preliminary Resulted Laboratory Tests 06/21/16 06:05: White Blood Count 11.6H, Red Blood Count 4.74, Hemoglobin 13.1L, Hematocrit 40.0L, Mean Corpuscular Volume 84, Mean Corpuscular Hemoglobin 27.5, Mean Corpuscular Hemoglobin Concent 32.6, Red Cell Distribution Width 15.6H, Platelet Count 178, Mean Platelet Volume 9.3, Neutrophils (%) (Auto) , Lymphocytes (%) (Auto) , Monocytes (%) (Auto) , Eosinophils (%) (Auto) , Basophils (%) (Auto) , Differential Total Cells Counted 100, Neutrophils % ( Manual) 80H, Lymphocytes % (Manual) 13L, Monocytes % (Manual) 7, Eosinophils % ( Manual) 0, Basophils % (Manual) 0, Band Neutrophils 0, Platelet Estimate Adequate, Platelet Morphology Normal, Anisocytosis 1+, Sodium Level 133L, Potassium Level 4.3, Chloride Level 95L, Carbon Dioxide Level 22, Anion Gap 16H , Blood Urea Nitrogen 32H, Creatinine 1.0, Estimat Glomerular Filtration Rate , Glucose Level 233H, Calcium Level 10.0 Current Medications Medications (Trade) Dose Ordered Sig/Shanita Route PRN Reason Start Time Stop Time Status Last Admin Dose Admin Albuterol/ Ipratropium (DuoNeb 0.5-3(2.5)mg/3ml) 3 ml EVERY 4 HOURS PRN HHN dyspnea 06/19/16 21:45 06/24/16 21:44 Amlodipine Besylate (Norvasc) 7.5 mg DAILY ORAL 06/20/16 09:00 07/20/16 08:59 06/21/16 08:46 Brimonidine Tartrate (Alphagan) 1 drop BID BOTH EYES 06/20/16 09:00 07/20/16 08:59 06/21/16 17:20 Cefepime HCl/ Dextrose (Maxipime/D5W) 55 ml @ 110 mls/hr EVERY 12 HOURS IVPB 06/20/16 21:00 06/27/16 20:59 06/21/16 21:16 Dextrose STAT PRN IV Hypoglycemia 06/19/16 21:45 07/19/16 21:44 Divalproex Sodium (Depakote) 250 mg Q12HR ORAL 06/20/16 09:00 07/20/16 08:59 06/21/16 21:16 Donepezil HCl (Aricept) 10 mg DAILY ORAL 06/20/16 09:00 07/20/16 08:59 06/21/16 08:46 Heparin Sodium (Porcine) (Heparin 5000 units/ml) 5,000 units EVERY 12 HOURS SUBQ 06/20/16 09:00 07/20/16 08:59 06/21/16 21:19 Ketorolac Tromethamine (Toradol 30mg) 30 mg EVERY 8 HOURS PRN IV moderate pain 4-6 06/19/16 21:45 06/24/16 21:44 Lactulose (Cephulac) 20 gm BID ORAL 06/20/16 09:00 07/20/16 08:59 06/21/16 08:46 Lorazepam (Ativan 2mg/ml 1ml) 0.5 mg Q4H PRN IV For Anxiety 06/19/16 21:45 06/26/16 21:44 Methylprednisolone Sodium Succinate (Solu-MEDROL) 60 mg EVERY 6 HOURS IV 06/20/16 00:00 07/20/16 00:00 06/21/16 17:20 Metronidazole (Flagyl) 500 mg Q8HR ORAL 06/20/16 14:30 06/27/16 14:29 06/21/16 21:16 Morphine Sulfate (Morphine Sulfate) 2 mg EVERY 4 HOURS PRN IVP severe pain 7-10 06/19/16 21:45 06/26/16 21:44 Nitroglycerin (Ntg) 0.4 mg Q5M X 3 DOSES PRN SL Prn Chest Pain 06/19/16 21:45 07/19/16 21:44 Ondansetron HCl (Zofran) 4 mg Q6H PRN IVP Nausea & Vomiting 06/19/16 21:45 07/19/16 21:44 Promethazine HCl/ Codeine (Phenergan with Codeine) 5 ml EVERY 6 HOURS PRN ORAL cough 06/19/16 21:45 07/19/16 21:44 Sertraline HCl (Zoloft) 100 mg DAILY ORAL 06/20/16 09:00 07/20/16 08:59 06/21/16 08:46 Temazepam (Restoril) 15 mg HSPRN PRN ORAL Insomnia 06/19/16 21:45 06/26/16 21:44 Theophylline (Martínez-Dur) 100 mg EVERY 12 HOURS ORAL 06/20/16 09:00 07/20/16 08:59 06/21/16 21:16 Vancomycin HCl (Vanco rx to dose) 1 ea DAILY PRN MISC . 06/20/16 14:30 07/20/16 14:29 Vancomycin HCl 1 gm/Dextrose 275 ml @ 183.708 mls/hr Q12H IVPB 06/20/16 16:00 06/25/16 15:59 06/21/16 15:51 ORACIO MIRANDA June 21, 2016 22:04
[2016-06-22] VITALS: BP 137/75
[2016-06-22] MEDS: Solu-MEDROL 125mg Inj IV SCH ×4 (00:05→17:26)
[2016-06-22 03:34] LABS: MEAN CORPUSCULAR HEMOGLOBIN 27.2 PG (27.0-31.0); MEAN CORPUSCULAR HGB CONC 32.1 G/DL (32.0-36.0); MEAN CORPUSCULAR VOLUME 85 FL (80-99); MEAN PLATELET VOLUME 8.3 FL (6.5-10.1); PLATELET COUNT 170 K/UL (150-450); RED BLOOD COUNT 4.69 M/UL (4.70-6.10); RED CELL DISTRIBUTION WIDTH 15.7 % (11.6-14.8); WHITE BLOOD COUNT 11.5 K/UL (4.8-10.8)
[2016-06-22 03:42] LABS: ANION GAP 14 (5-15); CALCIUM 9.8 mg/dL (8.6-10.2); CARBON DIOXIDE 23 mEQ/L (20-30); CHLORIDE 98 mEQ/L (98-107); HEMOLYSIS 10; POTASSIUM 4.2 mEQ/L (3.4-4.9); SODIUM 135 mEQ/L (135-145)
[2016-06-22 04:00] VITALS: BP 140/72
[2016-06-22] MEDS: Vancomycin 1250mg in D5W 275ml IVPB SCH ×2 (05:54→17:26)
[2016-06-22] MEDS: metroNIDAZOLE 500mg tab ORAL SCH ×3 (05:54→20:58)
[2016-06-22 08:00] VITALS: BP 121/82
--- NOTE | 2016-06-22 08:02 | General Progress Note ---
Assessment/Plan Problem List: (1) COPD exacerbation ICD Codes: J44.1 - Chronic obstructive pulmonary disease with (acute) exacerbation SNOMED: 275189926, 730173381 (2) Dementia ICD Codes: F03.90 - Unspecified dementia without behavioral disturbance SNOMED: 82240975 (3) HTN (hypertension) ICD Codes: I10 - Essential (primary) hypertension SNOMED: 90469710 Status: stable, progressing, tolerating diet Assessment/Plan ot pt diet o2 pulm abx cbc bmp am Subjective Constitutional: Reports: weakness Allergies: Coded Allergies: No Known Allergies (Unverified , 02/20/15) All Systems: reviewed and negative except above Subjective sleepy calm Objective Last 24 Hour Vital Signs Date Time Temp Pulse Resp B/P Pulse Ox O2 Delivery O2 Flow Rate FiO2 06/22/16 04:00 97.3 57 17 140/72 98 Room Air 06/22/16 00:00 97.0 53 16 137/75 98 Room Air 06/21/16 21:36 64 17 Room Air 06/21/16 20:00 96.1 59 17 126/55 97 Room Air 06/21/16 15:48 98.0 58 21 136/75 97 Room Air 06/21/16 11:33 97.9 61 20 129/59 96 Room Air 06/21/16 08:46 67 134/65 06/21/16 08:10 98.2 67 20 134/65 97 Room Air 06/21/16 08:02 69 18 Room Air Intake and Output 06/21/16 06/22/16 19:00 07:00 Intake Total 780.000 ml 293.708 ml Balance 780.000 ml 293.708 ml Intake Oral 450 ml IV Total 330.000 ml 293.708 ml # Voids 3 2 # Bowel Movements 2 2 Laboratory Tests 06/22/16 03:05: White Blood Count 11.5H, Red Blood Count 4.69L, Hemoglobin 12.8L, Hematocrit 39.7L, Mean Corpuscular Volume 85, Mean Corpuscular Hemoglobin 27.2, Mean Corpuscular Hemoglobin Concent 32.1, Red Cell Distribution Width 15.7H, Platelet Count 170, Mean Platelet Volume 8.3, Neutrophils (%) (Auto) , Lymphocytes (%) (Auto) , Monocytes (%) (Auto) , Eosinophils (%) (Auto) , Basophils (%) (Auto) , Neutrophils % (Manual) [Pending], Lymphocytes % (Manual) [Pending], Platelet Estimate [Pending], Platelet Morphology [Pending], Sodium Level 135, Potassium Level 4.2, Chloride Level 98, Carbon Dioxide Level 23, Anion Gap 14, Blood Urea Nitrogen 31H, Creatinine 1.0, Estimat Glomerular Filtration Rate , Glucose Level 165H, Calcium Level 9.8, Vancomycin Level Trough 12.3H Height (Feet): 6 Height (Inches): 2.00 Weight (Pounds): 180 General Appearance: lethargic EENT: normal ENT inspection Neck: normal alignment Cardiovascular: normal peripheral pulses, normal rate, regular rhythm Respiratory/Chest: chest wall non-tender, lungs clear, decreased breath sounds Abdomen: normal bowel sounds, non tender, soft Extremities: normal inspection Edema: no edema noted Arm (L), no edema noted Arm (R), no edema noted Leg (L), no edema noted Leg (R), no edema noted Pedal (L), no edema noted Pedal (R), no edema noted Generalized Neurologic: motor weakness Skin: normal pigmentation, warm/dry SAVAGE MORRIS June 22, 2016 08:02
[2016-06-22] MEDS: Lactulose 20gm/30ml UDC ORAL SCH ×3 (09:00→17:19)
[2016-06-22] MEDS: Sertraline 100mg tab ORAL SCH (09:15)
[2016-06-22] MEDS: Donepezil 10mg tab ORAL SCH (09:15)
[2016-06-22] MEDS: Theophylline ER 100mg ORAL SCH ×2 (09:15→20:58)
[2016-06-22] MEDS: Heparin 5000 units/ml inj SUBQ SCH ×2 (09:17→21:00)
[2016-06-22] MEDS: Brimonidine 0.2% Opth Sol BOTH EYES SCH ×2 (09:19→17:26)
[2016-06-22] MEDS: Cefepime HCl 1 GM in D5W 55 ML IVPB SCH ×2 (09:20→20:59)
[2016-06-22 09:50] LABS: ANISOCYTOSIS 1+; BAND NEUTROPHILS % (MANUAL) 0 % (0-8); BASOPHILS % (MANUAL) 0 % (0-2); EOSINOPHILS % (MANUAL) 0 % (0-3); LYMPHOCYTES % (MANUAL) 5 % (20-45); NEUTROPHILS % (MANUAL) 91 % (45-75); PLATELET ESTIMATE ADEQUATE; PLATELET MORPHOLOGY NORMAL; TOTAL CELLS COUNTED 100
--- NOTE | 2016-06-22 10:54 | Diagnostic Imaging Report ---
Indication: Nonhealing ulcer Technique: Left ankle/hindfoot imaging utilizing multiplanar T1 fast spin-echo, proton and T2 fast spin-echo with fat saturation, and STIR. Comparison: None Findings: There is a small, very superficial subcortical focus of T1 hypointensity/T2 hyperintensity along the posterior medial aspect of the calcaneus, in an area that is adjacent to subcutaneous fatty reticulation and cellulitis and contiguous nonhealing ulcer. Findings are suspicious for a small focus of acute osteomyelitis. There is no abscess. Impression: 1.5 cm focus of subcortical acute osteomyelitis suspected at the posterior medial aspect of the calcaneus. Nonhealing ulcer and adjacent cellulitis noted.
[2016-06-22 12:00] VITALS: BP 151/77
[2016-06-22 16:00] VITALS: BP 127/73
[2016-06-22 20:00] VITALS: BP 145/68
--- NOTE | 2016-06-22 21:48 | Consultation ---
DATE OF CONSULTATION: 06/21/2016 NOTE: "VERY POOR AUDIO QUALITY" PSYCHOTHERAPY CONSULTATION TREATING ATTENDING PHYSICIAN: Vincent Hanson D.O. HISTORY: The patient is a 80-year-old male patient from [facility]. The patient came into the hospital for chronic obstructive pulmonary disease exacerbation. This patient has long-term history of paranoid schizophrenia, confusion, disorganization . He has been confused, disorganized . The patient also has possible history of dementia. This clinician assessed the patient and . PAST MEDICAL HISTORY: History of hypertension and COPD. ALLERGIES: The patient has no known drug allergies. SUBSTANCE ABUSE HISTORY: The patient denies history of alcohol use, illicit substance use, or smoking cigarette. PAST PSYCHIATRIC HISTORY: The patient has history of paranoid schizophrenia. The patient had multiple inpatient psychiatric hospitalizations and had been treated with psychotropic medications in the past. SOCIAL HISTORY: The patient is a 80-year-old male. The patient the [facility]. Financially sustained through Medicare and [employer]. MENTAL STATUS EXAMINATION: The patient is alert and oriented x2, person and place. His mood is depressed. Affect is blunted. Thought process is disorganized. Thought content is confused. He has poor attention and concentration. Poor insight, judgement, and impulse control. DIAGNOSES: AXIS I Paranoid schizophrenia. AXIS II Deferred. AXIS III Per History and Physical. AXIS IV Problems with social environment. PLAN: This clinician has assessed this patient. Provided the patient with supportive psychotherapy, reality orientation, and coping skills. Encouraging the patient to participate in treatment milieu as well as medication management. Continue with medication management and behavioral management. This clinician has reviewed the patient's chart. Discussed the treatment with nursing staff. Eileen Yen PsyD. DR: RATNA JOB#: [id number] CC:
--- NOTE | 2016-06-22 22:49 | Pulmonology Progress Note ---
Assessment/Plan Problems: (1) COPD exacerbation (2) HTN (hypertension) (3) Dementia Assessment/Plan continue antibiotics respiratory treatment titrate fio2 check cultures dvt prophlaxis Subjective ROS Limited/Unobtainable: No Interval Events: comfortable, no new complains Allergies: Coded Allergies: No Known Allergies (Unverified , 02/20/15) Objective Last 24 Hour Vital Signs Date Time Temp Pulse Resp B/P Pulse Ox O2 Delivery O2 Flow Rate FiO2 06/22/16 20:05 75 16 Room Air 06/22/16 20:00 96.8 69 18 145/68 97 Room Air 06/22/16 16:00 97.3 69 20 127/73 99 Room Air 06/22/16 12:00 96.8 65 20 151/77 100 Room Air 06/22/16 09:15 57 140/72 06/22/16 08:15 82 18 Room Air 06/22/16 08:00 98.1 70 20 121/82 97 Room Air 06/22/16 04:00 97.3 57 17 140/72 98 Room Air 06/22/16 00:00 97.0 53 16 137/75 98 Room Air Intake and Output 06/21/16 06/22/16 19:00 07:00 Intake Total 780.000 ml 293.708 ml Balance 780.000 ml 293.708 ml Intake Oral 450 ml IV Total 330.000 ml 293.708 ml # Voids 3 2 # Bowel Movements 2 2 Objective General Appearance: WD/WN Lines, tubes and drains: peripheral HEENT: normocephalic, atraumatic Neck: non-tender, normal alignment Respiratory/Chest: chest wall non-tender Cardiovascular/Chest: normal peripheral pulses Abdomen: normal bowel sounds Genitourinary/Rectal: normal genital exam Extremities: normal range of motion, left foot ulcer Skin Exam: normal pigmentation Laboratory Tests 06/22/16 03:05: White Blood Count 11.5H, Red Blood Count 4.69L, Hemoglobin 12.8L, Hematocrit 39.7L, Mean Corpuscular Volume 85, Mean Corpuscular Hemoglobin 27.2, Mean Corpuscular Hemoglobin Concent 32.1, Red Cell Distribution Width 15.7H, Platelet Count 170, Mean Platelet Volume 8.3, Neutrophils (%) (Auto) , Lymphocytes (%) (Auto) , Monocytes (%) (Auto) , Eosinophils (%) (Auto) , Basophils (%) (Auto) , Differential Total Cells Counted 100, Neutrophils % ( Manual) 91H, Lymphocytes % (Manual) 5L, Monocytes % (Manual) 4, Eosinophils % ( Manual) 0, Basophils % (Manual) 0, Band Neutrophils 0, Platelet Estimate Adequate, Platelet Morphology Normal, Hypochromasia , Anisocytosis 1+, Sodium Level 135, Potassium Level 4.2, Chloride Level 98, Carbon Dioxide Level 23, Anion Gap 14, Blood Urea Nitrogen 31H, Creatinine 1.0, Estimat Glomerular Filtration Rate , Glucose Level 165H, Calcium Level 9.8, Vancomycin Level Trough 12.3H Current Medications Medications (Trade) Dose Ordered Sig/Shanita Route PRN Reason Start Time Stop Time Status Last Admin Dose Admin Albuterol/ Ipratropium (DuoNeb 0.5-3(2.5)mg/3ml) 3 ml EVERY 4 HOURS PRN HHN dyspnea 06/19/16 21:45 06/24/16 21:44 Amlodipine Besylate (Norvasc) 7.5 mg DAILY ORAL 06/20/16 09:00 07/20/16 08:59 06/22/16 09:15 Brimonidine Tartrate (Alphagan) 1 drop BID BOTH EYES 06/20/16 09:00 07/20/16 08:59 06/22/16 17:26 Cefepime HCl/ Dextrose (Maxipime/D5W) 55 ml @ 110 mls/hr EVERY 12 HOURS IVPB 06/20/16 21:00 06/27/16 20:59 06/22/16 20:59 Dextrose STAT PRN IV Hypoglycemia 06/19/16 21:45 07/19/16 21:44 Divalproex Sodium (Depakote) 250 mg Q12HR ORAL 06/20/16 09:00 07/20/16 08:59 06/22/16 20:58 Donepezil HCl (Aricept) 10 mg DAILY ORAL 06/20/16 09:00 07/20/16 08:59 06/22/16 09:15 Heparin Sodium (Porcine) (Heparin 5000 units/ml) 5,000 units EVERY 12 HOURS SUBQ 06/20/16 09:00 07/20/16 08:59 06/22/16 21:00 Ketorolac Tromethamine (Toradol 30mg) 30 mg EVERY 8 HOURS PRN IV moderate pain 4-6 06/19/16 21:45 06/24/16 21:44 Lactulose (Cephulac) 20 gm BID ORAL 06/20/16 09:00 07/20/16 08:59 06/21/16 08:46 Lorazepam (Ativan 2mg/ml 1ml) 0.5 mg Q4H PRN IV For Anxiety 06/19/16 21:45 06/26/16 21:44 Methylprednisolone Sodium Succinate (Solu-MEDROL) 60 mg EVERY 6 HOURS IV 06/20/16 00:00 07/20/16 00:00 06/22/16 17:26 Metronidazole (Flagyl) 500 mg Q8HR ORAL 06/20/16 14:30 06/27/16 14:29 06/22/16 20:58 Morphine Sulfate (Morphine Sulfate) 2 mg EVERY 4 HOURS PRN IVP severe pain 7-10 06/19/16 21:45 06/26/16 21:44 Nitroglycerin (Ntg) 0.4 mg Q5M X 3 DOSES PRN SL Prn Chest Pain 06/19/16 21:45 07/19/16 21:44 Ondansetron HCl (Zofran) 4 mg Q6H PRN IVP Nausea & Vomiting 06/19/16 21:45 07/19/16 21:44 Promethazine HCl/ Codeine (Phenergan with Codeine) 5 ml EVERY 6 HOURS PRN ORAL cough 06/19/16 21:45 07/19/16 21:44 Sertraline HCl (Zoloft) 100 mg DAILY ORAL 06/20/16 09:00 07/20/16 08:59 06/22/16 09:15 Temazepam (Restoril) 15 mg HSPRN PRN ORAL Insomnia 06/19/16 21:45 06/26/16 21:44 Theophylline (Martínez-Dur) 100 mg EVERY 12 HOURS ORAL 06/20/16 09:00 07/20/16 08:59 06/22/16 20:58 Vancomycin HCl 1 ea 1 ea DAILY PRN MISC . 06/20/16 14:30 07/20/16 14:29 Vancomycin HCl/ Dextrose (Vancomycin/D5W) 275 ml @ 183.708 mls/hr Q12H IVPB 06/22/16 05:00 06/27/16 04:59 06/22/16 17:26 ORACIO MIRANDA June 22, 2016 22:49
[2016-06-23] VITALS: BP 141/72
[2016-06-23 04:00] VITALS: BP 139/73
[2016-06-23 04:44] LABS: MEAN CORPUSCULAR HEMOGLOBIN 26.9 PG (27.0-31.0); MEAN CORPUSCULAR HGB CONC 32.4 G/DL (32.0-36.0); MEAN CORPUSCULAR VOLUME 83 FL (80-99); MEAN PLATELET VOLUME 8.7 FL (6.5-10.1); PLATELET COUNT 171 K/UL (150-450); RED BLOOD COUNT 4.48 M/UL (4.70-6.10); RED CELL DISTRIBUTION WIDTH 15.3 % (11.6-14.8); WHITE BLOOD COUNT 9.1 K/UL (4.8-10.8)
[2016-06-23 05:13] LABS: ANION GAP 12 (5-15); CALCIUM 9.4 mg/dL (8.6-10.2); CARBON DIOXIDE 26 mEQ/L (20-30); CHLORIDE 99 mEQ/L (98-107); CREATININE 0.9 mg/dL (0.7-1.2); HEMOLYSIS 4; SODIUM 137 mEQ/L (135-145)
[2016-06-23] MEDS: metroNIDAZOLE 500mg tab ORAL SCH ×3 (05:29→21:34)
[2016-06-23] MEDS: Vancomycin 1250mg in D5W 275ml IVPB SCH ×2 (05:29→17:16)
[2016-06-23 07:48] VITALS: BP 119/77
[2016-06-23 09:21] LABS: ANISOCYTOSIS 1+; BAND NEUTROPHILS % (MANUAL) 0 % (0-8); BASOPHILS % (MANUAL) 0 % (0-2); EOSINOPHILS % (MANUAL) 0 % (0-3); LYMPHOCYTES % (MANUAL) 5 % (20-45); NEUTROPHILS % (MANUAL) 93 % (45-75); PLATELET ESTIMATE ADEQUATE; PLATELET MORPHOLOGY NORMAL; TOTAL CELLS COUNTED 100
[2016-06-23] MEDS: Brimonidine 0.2% Opth Sol BOTH EYES SCH ×2 (10:03→18:47)
[2016-06-23] MEDS: Lactulose 20gm/30ml UDC ORAL SCH ×2 (10:03→18:47)
[2016-06-23] MEDS: Theophylline ER 100mg ORAL SCH ×2 (10:04→21:00)
[2016-06-23] MEDS: Donepezil 10mg tab ORAL SCH (10:04)
[2016-06-23] MEDS: Cefepime HCl 1 GM in D5W 55 ML IVPB SCH (10:04)
[2016-06-23] MEDS: Sertraline 100mg tab ORAL SCH (10:04)
[2016-06-23] MEDS: Heparin 5000 units/ml inj SUBQ SCH ×2 (10:06→21:07)
[2016-06-23 12:00] VITALS: BP 135/57
--- NOTE | 2016-06-23 14:11 | General Progress Note ---
Assessment/Plan Problem List: (1) COPD exacerbation ICD Codes: J44.1 - Chronic obstructive pulmonary disease with (acute) exacerbation SNOMED: 232438710, 877024062 (2) Dementia ICD Codes: F03.90 - Unspecified dementia without behavioral disturbance SNOMED: 55933888 (3) HTN (hypertension) ICD Codes: I10 - Essential (primary) hypertension SNOMED: 75371822 Status: stable, progressing, tolerating diet Assessment/Plan ot pt diet o2 pulm abx dc to snf Subjective Constitutional: Reports: weakness Allergies: Coded Allergies: No Known Allergies (Unverified , 02/20/15) All Systems: reviewed and negative except above Subjective sleepy calm Objective Last 24 Hour Vital Signs Date Time Temp Pulse Resp B/P Pulse Ox O2 Delivery O2 Flow Rate FiO2 06/23/16 12:00 97.9 58 22 135/57 96 Room Air 06/23/16 10:05 67 119/77 06/23/16 07:48 97.6 67 22 119/77 97 Room Air 06/23/16 06:39 67 17 Room Air 06/23/16 04:00 96.8 70 18 139/73 97 Room Air 06/23/16 00:00 97.0 72 18 141/72 97 Room Air 06/22/16 20:05 75 16 Room Air 06/22/16 20:00 96.8 69 18 145/68 97 Room Air 06/22/16 16:00 97.3 69 20 127/73 99 Room Air Intake and Output 06/22/16 06/23/16 19:00 07:00 Intake Total 346.292 ml 293.708 ml Balance 346.292 ml 293.708 ml Intake Oral 200 ml IV Total 146.292 ml 293.708 ml # Voids 4 6 # Bowel Movements 3 Laboratory Tests 06/23/16 04:20: White Blood Count 9.1, Red Blood Count 4.48L, Hemoglobin 12.1L, Hematocrit 37.1L , Mean Corpuscular Volume 83, Mean Corpuscular Hemoglobin 26.9L, Mean Corpuscular Hemoglobin Concent 32.4, Red Cell Distribution Width 15.3H, Platelet Count 171, Mean Platelet Volume 8.7, Neutrophils (%) (Auto) , Lymphocytes (%) (Auto) , Monocytes (%) (Auto) , Eosinophils (%) (Auto) , Basophils (%) (Auto) , Differential Total Cells Counted 100, Neutrophils % ( Manual) 93H, Lymphocytes % (Manual) 5L, Monocytes % (Manual) 2, Eosinophils % ( Manual) 0, Basophils % (Manual) 0, Band Neutrophils 0, Platelet Estimate Adequate, Platelet Morphology Normal, Anisocytosis 1+, Sodium Level 137, Potassium Level 4.0, Chloride Level 99, Carbon Dioxide Level 26, Anion Gap 12, Blood Urea Nitrogen 30H, Creatinine 0.9, Estimat Glomerular Filtration Rate , Glucose Level 137H, Calcium Level 9.4, Vancomycin Level Trough 20.2H Height (Feet): 6 Height (Inches): 2.00 Weight (Pounds): 180 General Appearance: alert EENT: normal ENT inspection Neck: normal alignment Cardiovascular: normal peripheral pulses, normal rate, regular rhythm Respiratory/Chest: chest wall non-tender, lungs clear, normal breath sounds Abdomen: normal bowel sounds, non tender, soft Extremities: normal inspection Edema: no edema noted Arm (L), no edema noted Arm (R), no edema noted Leg (L), no edema noted Leg (R), no edema noted Pedal (L), no edema noted Pedal (R), no edema noted Generalized Neurologic: responsive, motor weakness Skin: normal pigmentation, warm/dry SAVAGE MORRIS June 23, 2016 14:11
[2016-06-23] MEDS ORDERED: Heparin 2000 units/Ns 1000ml INJ ONE (14:45)
[2016-06-23] MEDS ORDERED: Lidocaine 1% Plain 30 ml INJ ONE (15:00)
[2016-06-23] MEDS ORDERED: Sodium Bicarbonate 8.4% 50ml Inj IV ONE (15:00)
--- NOTE | 2016-06-23 15:41 | Infectious Diseases Prog Note ---
Assessment/Plan Problems: (1) Acute osteomyelitis of left calcaneus Assessment & Plan: due to infected wound with staph aureus and enterococcus faecalis, will continue vancomycin and switch cefepime to unasyn , continue flagyl for anaerobic coverage , will need 6 weeks of IV antibiotics therapy , recommend obstetrician and gynaecologist eval if not done yet , will order arterial doppler of both legs. (2) Foot ulcer Assessment & Plan: on the left heel, with infection of the soft tissue needs to rule out underlying osteomyelitis, on cefepime, flagyl, and vancomycin, order MRI of the left foot to rule out osteomyelitis . (3) COPD exacerbation Assessment & Plan: on large dose of steroids, recommend to taper, continue bronchodialters and antibiotics, titrate oxygen as needed . (4) HTN (hypertension) Assessment & Plan: continue meds to keep SBP < 140 (5) Dementia Assessment & Plan: continue supportive care Subjective Constitutional: Reports: no symptoms HEENT: Reports: no symptoms Respiratory: Reports: no symptoms Cardiovascular: Reports: no symptoms Gastrointestinal/Abdominal: Reports: no symptoms Genitourinary: Reports: no symptoms Neurologic: Reports: no symptoms Psychiatric: Reports: no symptoms Skin: Reports: ulcer Allergies: Coded Allergies: No Known Allergies (Unverified , 02/20/15) Objective Vital Signs Last 24 Hour Vital Signs Date Time Temp Pulse Resp B/P Pulse Ox O2 Delivery O2 Flow Rate FiO2 06/23/16 12:00 97.9 58 22 135/57 96 Room Air 06/23/16 10:05 67 119/77 06/23/16 07:48 97.6 67 22 119/77 97 Room Air 06/23/16 06:39 67 17 Room Air 06/23/16 04:00 96.8 70 18 139/73 97 Room Air 06/23/16 00:00 97.0 72 18 141/72 97 Room Air 06/22/16 20:05 75 16 Room Air 06/22/16 20:00 96.8 69 18 145/68 97 Room Air 06/22/16 16:00 97.3 69 20 127/73 99 Room Air Height (Feet): 6 Height (Inches): 2.00 Weight (Pounds): 180 General Appearance: WD/WN, no acute distress HEENT: normocephalic, atraumatic, anicteric, mucous membranes moist Respiratory/Chest: chest wall non-tender, lungs clear, normal breath sounds, no respiratory distress, no accessory muscle use Cardiovascular: normal peripheral pulses, normal rate, regular rhythm, no gallop/murmur, no JVD Abdomen: normal bowel sounds, soft, non tender, no organomegaly, non distended , no mass Extremities: no cyanosis Skin: no rash, ulcers Laboratory Tests Test 06/23/16 04:20 White Blood Count 9.1 K/UL (4.8-10.8) Red Blood Count 4.48 M/UL (4.70-6.10) L Hemoglobin 12.1 G/DL (14.2-18.0) L Hematocrit 37.1 % (42.0-52.0) L Mean Corpuscular Volume 83 FL (80-99) Mean Corpuscular Hemoglobin 26.9 PG (27.0-31.0) L Mean Corpuscular Hemoglobin Concent 32.4 G/DL (32.0-36.0) Red Cell Distribution Width 15.3 % (11.6-14.8) H Platelet Count 171 K/UL (150-450) Mean Platelet Volume 8.7 FL (6.5-10.1) Neutrophils (%) (Auto) % (45.0-75.0) Lymphocytes (%) (Auto) % (20.0-45.0) Monocytes (%) (Auto) % (1.0-10.0) Eosinophils (%) (Auto) % (0.0-3.0) Basophils (%) (Auto) % (0.0-2.0) Differential Total Cells Counted 100 Neutrophils % (Manual) 93 % (45-75) H Lymphocytes % (Manual) 5 % (20-45) L Monocytes % (Manual) 2 % (1-10) Eosinophils % (Manual) 0 % (0-3) Basophils % (Manual) 0 % (0-2) Band Neutrophils 0 % (0-8) Platelet Estimate Adequate Platelet Morphology Normal Anisocytosis 1+ Sodium Level 137 mEQ/L (135-145) Potassium Level 4.0 mEQ/L (3.4-4.9) Chloride Level 99 mEQ/L (98-107) Carbon Dioxide Level 26 mEQ/L (20-30) Anion Gap 12 (5-15) Blood Urea Nitrogen 30 mg/dL (7-23) H Creatinine 0.9 mg/dL (0.7-1.2) Estimat Glomerular Filtration Rate mL/min (>60) Glucose Level 137 mg/dL (74-106) H Calcium Level 9.4 mg/dL (8.6-10.2) Vancomycin Level Trough 20.2 ug/mL (5.0-12.0) H Current Medications Medications (Trade) Dose Ordered Sig/Shanita Route PRN Reason Start Time Stop Time Status Last Admin Dose Admin Albuterol/ Ipratropium (DuoNeb 0.5-3(2.5)mg/3ml) 3 ml EVERY 4 HOURS PRN HHN dyspnea 06/19/16 21:45 06/24/16 21:44 Amlodipine Besylate (Norvasc) 7.5 mg DAILY ORAL 06/20/16 09:00 07/20/16 08:59 06/23/16 10:05 Brimonidine Tartrate (Alphagan) 1 drop BID BOTH EYES 06/20/16 09:00 07/20/16 08:59 06/23/16 10:03 Cefepime HCl/ Dextrose (Maxipime/D5W) 55 ml @ 110 mls/hr EVERY 12 HOURS IVPB 06/20/16 21:00 06/27/16 20:59 06/23/16 10:04 Dextrose STAT PRN IV Hypoglycemia 06/19/16 21:45 07/19/16 21:44 Divalproex Sodium (Depakote) 250 mg Q12HR ORAL 06/20/16 09:00 07/20/16 08:59 06/23/16 10:04 Donepezil HCl (Aricept) 10 mg DAILY ORAL 06/20/16 09:00 07/20/16 08:59 06/23/16 10:04 Heparin Sodium (Porcine) (Heparin 5000 units/ml) 5,000 units EVERY 12 HOURS SUBQ 06/20/16 09:00 07/20/16 08:59 06/23/16 10:06 Ketorolac Tromethamine (Toradol 30mg) 30 mg EVERY 8 HOURS PRN IV moderate pain 4-6 06/19/16 21:45 06/24/16 21:44 Lactulose (Cephulac) 20 gm BID ORAL 06/20/16 09:00 07/20/16 08:59 06/23/16 10:03 Lorazepam (Ativan 2mg/ml 1ml) 0.5 mg Q4H PRN IV For Anxiety 06/19/16 21:45 06/26/16 21:44 Metronidazole (Flagyl) 500 mg Q8HR ORAL 06/20/16 14:30 06/27/16 14:29 06/23/16 14:27 Morphine Sulfate (Morphine Sulfate) 2 mg EVERY 4 HOURS PRN IVP severe pain 7-10 06/19/16 21:45 06/26/16 21:44 Nitroglycerin (Ntg) 0.4 mg Q5M X 3 DOSES PRN SL Prn Chest Pain 06/19/16 21:45 07/19/16 21:44 Ondansetron HCl (Zofran) 4 mg Q6H PRN IVP Nausea & Vomiting 06/19/16 21:45 07/19/16 21:44 Promethazine HCl/ Codeine (Phenergan with Codeine) 5 ml EVERY 6 HOURS PRN ORAL cough 06/19/16 21:45 07/19/16 21:44 Sertraline HCl (Zoloft) 100 mg DAILY ORAL 06/20/16 09:00 07/20/16 08:59 06/23/16 10:04 Temazepam (Restoril) 15 mg HSPRN PRN ORAL Insomnia 06/19/16 21:45 06/26/16 21:44 Theophylline (Martínez-Dur) 100 mg EVERY 12 HOURS ORAL 06/20/16 09:00 07/20/16 08:59 06/23/16 10:04 Vancomycin HCl 1 ea 1 ea DAILY PRN MISC . 06/20/16 14:30 07/20/16 14:29 Vancomycin HCl/ Dextrose (Vancomycin/D5W) 275 ml @ 183.708 mls/hr Q12H IVPB 06/22/16 05:00 06/27/16 04:59 06/23/16 05:29 Leann Dubon M.D. June 23, 2016 15:41
[2016-06-23 15:46] VITALS: BP 134/68
[2016-06-23] MEDS: Ampicillin/Sulbactam Sod 3 GM in NS 110 ML IVPB SCH ×2 (18:47→23:58)
[2016-06-23 20:00] VITALS: BP 128/79
--- NOTE | 2016-06-23 20:25 | Consultation ---
Consult Note Consult Note TITLE: PODIATRY CONSULT DATE OF CONSULTATION: 06/23/16 CONSULTING PHYSICIAN: JOSUE VALENTINO DPM COVERING FOR: JONES TORRES DPM REASON FOR CONSULT: LEFT FOOT ULCER HISTORY OF PRESENT ILLNESS: Patient is a 80 year old male who was transferred from [facility] due to COPD exacerbation. Patient has a history of dementia and is unable to provide complete history. He does not recall how long the left foot wound has been present for and what has been done for it thus far. No nausea, vomiting, fevers, or chills. No foot pain reported. PAST MEDICAL HISTORY: COPD, HTN, CVA, AND DEMENTIA ANTIBIOTICS: UNASYN, METRONIDAZOLE, AND VANCOMYCIN SOCIAL HISTORY: No current tobacco, alcohol, or illicit drug use FAMILY AND SURGICAL HISTORY: Unable to obtain Subjective Allergies: Coded Allergies: No Known Allergies (Unverified , 02/20/15) Objective Objective Exam Last 24 Hour Vital Signs Date Time Temp Pulse Resp B/P Pulse Ox O2 Delivery O2 Flow Rate FiO2 06/23/16 15:46 97.7 68 22 134/68 99 Room Air 06/23/16 12:00 97.9 58 22 135/57 96 Room Air 06/23/16 10:05 67 119/77 06/23/16 07:48 97.6 67 22 119/77 97 Room Air 06/23/16 06:39 67 17 Room Air 06/23/16 04:00 96.8 70 18 139/73 97 Room Air 06/23/16 00:00 97.0 72 18 141/72 97 Room Air 06/22/16 20:05 75 16 Room Air Laboratory Tests Test 06/23/16 04:20 White Blood Count 9.1 K/UL (4.8-10.8) Red Blood Count 4.48 M/UL (4.70-6.10) L Hemoglobin 12.1 G/DL (14.2-18.0) L Hematocrit 37.1 % (42.0-52.0) L Mean Corpuscular Volume 83 FL (80-99) Mean Corpuscular Hemoglobin 26.9 PG (27.0-31.0) L Mean Corpuscular Hemoglobin Concent 32.4 G/DL (32.0-36.0) Red Cell Distribution Width 15.3 % (11.6-14.8) H Platelet Count 171 K/UL (150-450) Mean Platelet Volume 8.7 FL (6.5-10.1) Neutrophils (%) (Auto) % (45.0-75.0) Lymphocytes (%) (Auto) % (20.0-45.0) Monocytes (%) (Auto) % (1.0-10.0) Eosinophils (%) (Auto) % (0.0-3.0) Basophils (%) (Auto) % (0.0-2.0) Differential Total Cells Counted 100 Neutrophils % (Manual) 93 % (45-75) H Lymphocytes % (Manual) 5 % (20-45) L Monocytes % (Manual) 2 % (1-10) Eosinophils % (Manual) 0 % (0-3) Basophils % (Manual) 0 % (0-2) Band Neutrophils 0 % (0-8) Platelet Estimate Adequate Platelet Morphology Normal Anisocytosis 1+ Sodium Level 137 mEQ/L (135-145) Potassium Level 4.0 mEQ/L (3.4-4.9) Chloride Level 99 mEQ/L (98-107) Carbon Dioxide Level 26 mEQ/L (20-30) Anion Gap 12 (5-15) Blood Urea Nitrogen 30 mg/dL (7-23) H Creatinine 0.9 mg/dL (0.7-1.2) Estimat Glomerular Filtration Rate mL/min (>60) Glucose Level 137 mg/dL (74-106) H Calcium Level 9.4 mg/dL (8.6-10.2) Vancomycin Level Trough 20.2 ug/mL (5.0-12.0) H Microbiology Date/Time Source Procedure Growth Status 06/19/16 16:45 Blood Blood Culture - Preliminary NO GROWTH AFTER 72 HOURS Resulted 06/19/16 19:37 Nasal Nares MRSA Culture - Final NO METHICILLIN RESISTANT STAPH AUREUS... Complete 06/19/16 22:30 Foot Left Gram Stain - Final Resulted 06/19/16 22:30 Wound Culture - Preliminary Staphylococcus Aureus Enterococcus Faecalis Resulted IMAGING STUDIES: Procedure: MRI Left Ankle WO Contrast Indication: Nonhealing ulcer Technique: Left ankle/hindfoot imaging utilizing multiplanar T1 fast spin-echo, proton and T2 fast spin-echo with fat saturation, and STIR. Comparison: None Findings: There is a small, very superficial subcortical focus of T1 hypointensity/T2 hyperintensity along the posterior medial aspect of the calcaneus, in an area that is adjacent to subcutaneous fatty reticulation and cellulitis and contiguous nonhealing ulcer. Findings are suspicious for a small focus of acute osteomyelitis. There is no abscess. Impression: 1.5 cm focus of subcortical acute osteomyelitis suspected at the posterior medial aspect of the calcaneus. Nonhealing ulcer and adjacent cellulitis noted. PHYSICAL EXAM: DERM: Full thickness ulcer at the medial heel on the left. No purulence or malodor noted. Fibrotic and fatty tissue noted at the base of the wound .Draining serosanguineous fluid. No surrounding erythema or edema NEURO: Decreased sensation to on the left compared to the right VASC: Pedal pulses difficult to palpate MSK: Foot drop on the left. Bunion and hammertoes 2-5 bilaterally . Assessment/Plan 1. Left heel ulcer with underlying osteomyelitis noted on MRI. The wound base has fatty and fibrotic non viable tissue. Consent was obtained from patient's son and an excisional debridement was performed to the level of subcutaneous tissue. The patient tolerated the procedure well without complications. Start daily use of Santyl. Infectious disease specialist is following patient and making recommendations regarding antibiotics. 2. Left foot drop, history of CVA, and peripheral neuropathy. Continue to use heel protector daily Josue Valentino DPM June 23, 2016 20:24
--- NOTE | 2016-06-23 21:51 | Pulmonology Progress Note ---
Assessment/Plan Problems: (1) COPD exacerbation (2) HTN (hypertension) (3) Dementia (4) Foot ulcer Assessment/Plan respiratory treatment IV antibiotics check cultures dvt prophylaxis dc planning ok from pulmonary aspect Subjective Interval Events: no new complains Allergies: Coded Allergies: No Known Allergies (Unverified , 02/20/15) Objective Last 24 Hour Vital Signs Date Time Temp Pulse Resp B/P Pulse Ox O2 Delivery O2 Flow Rate FiO2 06/23/16 20:00 96.8 57 20 128/79 96 Room Air 06/23/16 19:30 64 17 Room Air 06/23/16 15:46 97.7 68 22 134/68 99 Room Air 06/23/16 12:00 97.9 58 22 135/57 96 Room Air 06/23/16 10:05 67 119/77 06/23/16 07:48 97.6 67 22 119/77 97 Room Air 06/23/16 06:39 67 17 Room Air 06/23/16 04:00 96.8 70 18 139/73 97 Room Air 06/23/16 00:00 97.0 72 18 141/72 97 Room Air Intake and Output 06/22/16 06/23/16 19:00 07:00 Intake Total 346.292 ml 293.708 ml Balance 346.292 ml 293.708 ml Intake Oral 200 ml IV Total 146.292 ml 293.708 ml # Voids 4 6 # Bowel Movements 3 Objective General Appearance: WD/WN Lines, tubes and drains: peripheral HEENT: normocephalic, atraumatic Neck: non-tender, normal alignment Respiratory/Chest: chest wall non-tender Cardiovascular/Chest: normal peripheral pulses Abdomen: normal bowel sounds Genitourinary/Rectal: normal genital exam Extremities: normal range of motion, left foot ulcer Skin Exam: normal pigmentation Laboratory Tests 06/23/16 04:20: White Blood Count 9.1, Red Blood Count 4.48L, Hemoglobin 12.1L, Hematocrit 37.1L , Mean Corpuscular Volume 83, Mean Corpuscular Hemoglobin 26.9L, Mean Corpuscular Hemoglobin Concent 32.4, Red Cell Distribution Width 15.3H, Platelet Count 171, Mean Platelet Volume 8.7, Neutrophils (%) (Auto) , Lymphocytes (%) (Auto) , Monocytes (%) (Auto) , Eosinophils (%) (Auto) , Basophils (%) (Auto) , Differential Total Cells Counted 100, Neutrophils % ( Manual) 93H, Lymphocytes % (Manual) 5L, Monocytes % (Manual) 2, Eosinophils % ( Manual) 0, Basophils % (Manual) 0, Band Neutrophils 0, Platelet Estimate Adequate, Platelet Morphology Normal, Anisocytosis 1+, Sodium Level 137, Potassium Level 4.0, Chloride Level 99, Carbon Dioxide Level 26, Anion Gap 12, Blood Urea Nitrogen 30H, Creatinine 0.9, Estimat Glomerular Filtration Rate , Glucose Level 137H, Calcium Level 9.4, Vancomycin Level Trough 20.2H Current Medications Medications (Trade) Dose Ordered Sig/Shanita Route PRN Reason Start Time Stop Time Status Last Admin Dose Admin Albuterol/ Ipratropium (DuoNeb 0.5-3(2.5)mg/3ml) 3 ml EVERY 4 HOURS PRN HHN dyspnea 06/19/16 21:45 06/24/16 21:44 Amlodipine Besylate (Norvasc) 7.5 mg DAILY ORAL 06/20/16 09:00 07/20/16 08:59 06/23/16 10:05 Ampicillin Sodium/ Sulbactam Sodium/ Sodium Chloride (Unasyn/Sodium Chloride) 110 ml @ 220 mls/hr Q6HR IVPB 06/23/16 18:00 06/30/16 17:59 06/23/16 18:47 Brimonidine Tartrate (Alphagan) 1 drop BID BOTH EYES 06/20/16 09:00 07/20/16 08:59 06/23/16 18:47 Dextrose (Dextrose 50%) STAT PRN IV Hypoglycemia 06/19/16 21:45 07/19/16 21:44 Divalproex Sodium (Depakote) 250 mg Q12HR ORAL 06/20/16 09:00 07/20/16 08:59 06/23/16 21:00 Donepezil HCl (Aricept) 10 mg DAILY ORAL 06/20/16 09:00 07/20/16 08:59 06/23/16 10:04 Heparin Sodium (Porcine) (Heparin 5000 units/ml) 5,000 units EVERY 12 HOURS SUBQ 06/20/16 09:00 07/20/16 08:59 06/23/16 21:07 Ketorolac Tromethamine (Toradol 30mg) 30 mg EVERY 8 HOURS PRN IV moderate pain 4-6 06/19/16 21:45 06/24/16 21:44 Lactulose (Cephulac) 20 gm BID ORAL 06/20/16 09:00 07/20/16 08:59 06/23/16 18:47 Lorazepam (Ativan 2mg/ml 1ml) 0.5 mg Q4H PRN IV For Anxiety 06/19/16 21:45 06/26/16 21:44 Metronidazole (Flagyl) 500 mg Q8HR ORAL 06/20/16 14:30 06/27/16 14:29 06/23/16 21:34 Morphine Sulfate (Morphine Sulfate) 2 mg EVERY 4 HOURS PRN IVP severe pain 7-10 06/19/16 21:45 06/26/16 21:44 Nitroglycerin (Ntg) 0.4 mg Q5M X 3 DOSES PRN SL Prn Chest Pain 06/19/16 21:45 07/19/16 21:44 Ondansetron HCl (Zofran) 4 mg Q6H PRN IVP Nausea & Vomiting 06/19/16 21:45 07/19/16 21:44 Promethazine HCl/ Codeine (Phenergan with Codeine) 5 ml EVERY 6 HOURS PRN ORAL cough 06/19/16 21:45 07/19/16 21:44 Sertraline HCl (Zoloft) 100 mg DAILY ORAL 06/20/16 09:00 07/20/16 08:59 06/23/16 10:04 Temazepam (Restoril) 15 mg HSPRN PRN ORAL Insomnia 06/19/16 21:45 06/26/16 21:44 Theophylline (Martínez-Dur) 100 mg EVERY 12 HOURS ORAL 06/20/16 09:00 07/20/16 08:59 06/23/16 21:00 Vancomycin HCl 1.25 gm/Dextrose 275 ml @ 183.708 mls/hr Q12H IVPB 06/22/16 05:00 06/27/16 04:59 06/23/16 17:16 Vancomycin HCl 1 ea 1 ea DAILY PRN MISC . 06/20/16 14:30 07/20/16 14:29 ORACIO MIRANDA June 23, 2016 21:51
[2016-06-24] VITALS: BP 143/70
[2016-06-24 04:00] VITALS: BP 144/74
[2016-06-24] MEDS: Vancomycin 1250mg in D5W 275ml IVPB SCH (04:50)
[2016-06-24] MEDS ORDERED: DEXTROSE 50%-WA50 ML IV ×2 (05:28→05:29)
[2016-06-24] MEDS ORDERED: HEPARIN SO5000 UNIT2 SUBQ (05:39)
[2016-06-24] MEDS ORDERED: TORADOL60 MG/2 ML IV (05:41)
[2016-06-24] MEDS ORDERED: ZOFRAN 4 MG4 MG/2 ML IV (05:42)
[2016-06-24] MEDS ORDERED: DUONEB 0.5-3(2.53 ML HHN (05:43)
[2016-06-24] MEDS ORDERED: ATIVAN2 MG/1 ML IV (05:45)
[2016-06-24] MEDS ORDERED: METRONIDAZOLE500 MG ORAL (05:46)
[2016-06-24] MEDS ORDERED: LACTULOSE20 GM/301 ORAL (05:46)
[2016-06-24] MEDS ORDERED: THEOPHYLLINE A100 MG ORAL (05:47)
[2016-06-24] MEDS ORDERED: MORPHINE 22 MG/1 ML IV (05:49)
[2016-06-24] MEDS ORDERED: PROMETHAZINE-C118 M1 ORAL (05:50)
[2016-06-24] MEDS ORDERED: RESTORIL15 MG ORAL (05:51)
[2016-06-24] MEDS ORDERED: NITROGLYCERIN0.4 MG SL (05:52)
[2016-06-24] MEDS ORDERED: UNASYN 3 GM VIAL3 GM IJ (05:53)
[2016-06-24] MEDS ORDERED: VANCO 1.251.25 GM/25 IV (05:54)
[2016-06-24] MEDS: Ampicillin/Sulbactam Sod 3 GM in NS 110 ML IVPB SCH (06:29)
[2016-06-24] MEDS: metroNIDAZOLE 500mg tab ORAL SCH (06:29)
[2016-06-24 07:56] VITALS: BP 145/82
[2016-06-24] MEDS: Lactulose 20gm/30ml UDC ORAL SCH (09:32)
[2016-06-24] MEDS: Brimonidine 0.2% Opth Sol BOTH EYES SCH (09:32)
[2016-06-24] MEDS: Theophylline ER 100mg ORAL SCH (09:38)
[2016-06-24] MEDS: Sertraline 100mg tab ORAL SCH (09:38)
[2016-06-24] MEDS: Donepezil 10mg tab ORAL SCH (09:39)
[2016-06-24] MEDS: Heparin 5000 units/ml inj SUBQ SCH (09:40)
--- NOTE | 2016-06-24 11:12 | Diagnostic Imaging Report ---
Indication: lap cutter venous access Findings: After the indications, procedure, risks, complications, and alternatives of the procedure were explained, written informed consent was obtained. The left upper extremity was prepped with alcohol. All elements of maximal sterile barrier technique were followed including usage of a cap, mask, sterile gown, sterile gloves, hand hygiene and a large sterile sheet. Sonographic evaluation of the upper extremity was performed demonstrating a patent and compressible right heel vein. Access was obtained under real-time ultrasound guidance and digital image was saved and archived. An .018 wire was introduced. Needle exchanged for a 5 Finnish peel-away sheath. Measurements were obtained. A 5 Finnish dual-lumen Power PICC line catheter was cut to 45 Rip and introduced over the wire. Peel-away sheath and wire were removed.Catheter was secured to the skin using 2-0 Prolene suture. Both ports aspirate and flush easily. Fluoroscopic Images show distal tip in the superior vena cava. Total fluoroscopic time 0.1 minute Impression: Successful placement of an upper extremity PICC line catheter
[2016-06-24 11:24] VITALS: BP 126/63
[2016-06-24] MEDS ORDERED: Tubing IV Secondary IV ONE (11:56)
[2016-06-24] MEDS ORDERED: D5NS 1000ml IV ONE (11:56)
[2016-06-24] MEDS ORDERED: NS 550ML IV ONE (11:56)
--- NOTE | 2016-06-24 17:38 | Pulmonology Progress Note ---
Assessment/Plan Problems: (1) COPD exacerbation (2) HTN (hypertension) (3) Dementia (4) Foot ulcer Assessment/Plan continue antibiotics respiratory treatment titrate fio2 check cultures dvt prophlaxis dc home today Subjective ROS Limited/Unobtainable: No Interval Events: seen earlier, no new complains Allergies: Coded Allergies: No Known Allergies (Unverified , 02/20/15) Objective Last 24 Hour Vital Signs Date Time Temp Pulse Resp B/P Pulse Ox O2 Delivery O2 Flow Rate FiO2 06/24/16 11:24 98.0 64 21 126/63 96 Room Air 06/24/16 10:42 66 145/82 06/24/16 09:07 66 17 Room Air 06/24/16 07:56 98.2 66 21 145/82 99 Room Air 06/24/16 04:00 97.3 59 20 144/74 99 Room Air 06/24/16 00:00 96.8 61 20 143/70 97 Room Air 06/23/16 20:00 96.8 57 20 128/79 96 Room Air 06/23/16 19:30 64 17 Room Air Intake and Output 06/23/16 06/24/16 19:00 07:00 Intake Total 1233.708 ml 605.000 ml Output Total 400 ml 800 ml Balance 833.708 ml -195.000 ml Intake Oral 720 ml IV Total 513.708 ml 605.000 ml Output Urine Total 400 ml 800 ml # Voids 2 # Bowel Movements 3 1 Objective General Appearance: WD/WN Lines, tubes and drains: peripheral HEENT: normocephalic, atraumatic Neck: non-tender, normal alignment Respiratory/Chest: chest wall non-tender Cardiovascular/Chest: normal peripheral pulses Abdomen: normal bowel sounds Genitourinary/Rectal: normal genital exam Extremities: normal range of motion, left foot ulcer Skin Exam: normal pigmentation ORACIO MIRANDA June 24, 2016 17:38
--- NOTE | 2016-06-24 20:49 | Progress Note ---
DATE: 06/23/2016 TREATING ATTENDING PHYSICIAN: Vincent Hanson D.O. SUBJECTIVE: This is a 80-year-old male patient with paranoid schizophrenia. The patient is disorganized and confused. He has altered mental status. He is alert and awake and . The patient is oriented x2, to person and place. Mood is depressed. Affect is blunted. Thought process is . The patient has poor attention and concentration. Poor insight, judgment, and impulse control. PLAN: This clinician assessed this patient. This clinician provided the patient with supportive psychotherapy, reality orientation, and coping skills. Encouraging the patient to participate in treatment milieu, participate in the . Continue with medication management and behavioral management. This clinician has reviewed the patient's chart. Discussed the treatment with nursing staff. Eileen Yen PsyD. DR: TWAN JOB#: [id number] CC:
--- NOTE | 2016-06-26 01:19 | Discharge Summary 2 SIG ---
DATE OF ADMISSION: 06/19/2016 DATE OF DISCHARGE: 06/24/2016 CONSULTANTS: 1. Jef Johnson MD 2. Ortega Valentino DPM 3. Leann Dubon MD 4. Dr. Eileen Yen BRIEF HOSPITAL COURSE: The patient is a 80-year-old male, who presented to ED with shortness of breath that has been ongoing and worsening for the past several days. He has history of COPD and on evaluation at ED, the patient was still short of breath and wheezing. The patient was then admitted for inpatient care. Chest x-ray showed no consolidation, no effusion, and no pneumothorax. He was followed by Dr. Johnson from pulmonary service and was given respiratory treatments and IV steroids. He was seen by Dr Dubon, Infectious Disease specialist as the patient came in with a left foot ulcer and MRI findings of underlying osteomyelitis. The wound base has fatty and fibrotic nonviable tissues; and excision and debridement was performed by Dr. Valentino at bedside. He was given wound care treatment with daily use of Santyl. Wound culture with Staph aureus and Enterococcus faecalis. He was given vancomycin and cefepime was switched to Unasyn and was also given Flagyl for anaerobic coverage. He was advised to continue six weeks of IV antibiotics. He was seen by A PICC line was placed on the left upper extremity and the patient was discharged to [facility] to continue antibiotic treatment. FINAL DIAGNOSES: 1. Acute chronic obstructive pulmonary disease exacerbation. 2. Acute osteomyelitis on the left heel. 3. Foot ulcer present on admission. 4. Hypertension. 5. Dementia. 6. Left heel stage IV/unstageable pressure ulcer, present on admission. Vincent Hanson D.O. I have been assigned to dictate discharge summary on this account and I was not involved in the patient's management. Valencia Portillo N.P. DR: MARTHA JOB#: [id number] CC: [facility]
--- NOTE | 2016-06-26 17:38 | Progress Note ---
DATE: 06/23/2016 SUBJECTIVE: This is a 80-year-old male patient with Chronic obstructive pulmonary disease. The patient is confused and disorganized, poor cognition secondary to progression of his medical illness. PLAN: My plan for this patient is treat him with a medication regimen consisting of Zyprexa, Zoloft, Depakote, and . Continue treatment with psychotropic medications to prevent any decline in cognition. Chart reviewed. Discussed with staff. Seen and assessed at bedside. Mouna Bruce M.D. DR: Misa JOB#: [id number] CC:
--- NOTE | 2016-06-26 17:48 | Progress Note ---
DATE: 06/22/2016 SUBJECTIVE: The patient is a 80-year-old male patient with COPD. He is confused and disorganized. Poor cognition secondary to progression of his medical illness. PLAN: Plan for this patient is to treat him with a medication regimen. Continue to treat this patient with psychotropic medication regimen consisting of Zyprexa, Zoloft, and Depakote to stabilize his mood. Chart is reviewed and discussed with staff. Seen and assessed at bedside. Supportive care provided. He will continue to be followed by Psychiatry throughout his hospital course. Mouna Bruce M.D. DR: HALLIE JOB#: [id number] CC:
--- NOTE | 2016-06-26 17:58 | Progress Note ---
DATE: 06/21/2016 SUBJECTIVE: The patient has COPD, confusion, disorganized thought process. PLAN: My plan for this patient is to treat with him with medication regimen of Depakote 250 mg twice a day, Zoloft 100 mg daily, Zyprexa 10 mg twice a day, Aricept 10 mg at bedtime. Encourage him to interact appropriately with staff and other patients. Chart reviewed and discussed with staff. Mouna Bruce M.D. DR: Misa JOB#: [id number] CC:
--- NOTE | 2016-06-26 21:59 | Consultation ---
DATE OF CONSULTATION: 06/20/2016 NOTE: "POOR AUDIO QUALITY" HISTORY OF PRESENT ILLNESS: This is a 80-year-old male patient with COPD and the main reason for this patient's admission to the hospital is confused and disorganized he came in because he had shortness of breath, weakness, and confusion, altered mental status, came in from [facility]. He had COPD exacerbation, encephalopathy, and congestion and he is very confused and disorganized, so was admitted, but because of his altered mental status and history of schizophrenia, a psychiatric consultation was requested. PAST MEDICAL HISTORY: Hypertension and COPD. SOCIAL HISTORY: He lives in [facility]. He is financially supported by [employer] and Medicare. SUBSTANCE ABUSE HISTORY: Denies drug and alcohol use. FAMILY PSYCHIATRIC HISTORY: Denies. PSYCHIATRIC HISTORY: Multiple psychiatric admissions, diagnosed with paranoid schizophrenia. MENTAL STATUS EXAMINATION: This is a 80-year-old male with psychomotor retardation. Mood is depressed. Affect is guarded and restricted. Thought process is disorganized and illogical. suicidal ideation, thinking to overdose on medications. Insight and judgment is poor. DIAGNOSIS: The patient has paranoid schizophrenia with acute exacerbation. PLAN: Plan for this patient is to treat him with a psychiatric medication regimen consisting of Zyprexa 10 mg twice a day, Zoloft 100 mg daily, and also 500 mg daily, Depakote 250 mg twice a day and he will continue to be followed by Psychiatry throughout his hospital course. Chart was reviewed and discussed with staff. I would like to thank, Dr. Vincent Hanson, for this interesting consultation. Mouna Bruce M.D. DR: LION JOB#: [id number] CC:
--- NOTE | 2016-06-26 21:59 | Progress Note ---
DATE: 06/24/2016 SUBJECTIVE: The patient is a 80-year-old male patient with COPD, confused and disorganized, altered mental status, decline in cognition. Chart reviewed and discussed with staff. The patient was seen and assessed at bedside. He will continue to be followed by Psychiatry throughout his hospital course. Mouna Bruce M.D. DR: LION JOB#: [id number] CC:
== END 2016-06-24 11:57 | DRG 166 ==
LOC: EDBD 15:49 → EMR 16:49 → 4E 17:32 → EDBEDREQ 18:58
PROC: 0JBR0ZZ Excision of Left Foot Subcutaneous Tissue and Fascia, Open Approach (ICD-10-PCS; principal; 2016-06-23)
PROC: 02HV33Z Insertion of Infusion Device into Superior Vena Cava, Percutaneous Approach (ICD-10-PCS; principal; 2016-06-23)
DX: J44.1 Chronic obstructive pulmonary disease with (acute) exacerbation (principal); L89.624 Pressure ulcer of left heel, stage 4; M86.172 Other acute osteomyelitis, left ankle and foot; F03.90 Unspecified dementia, unspecified severity, without behavioral disturbance, psychotic disturbance, mood disturbance, and anxiety; B95.61 Methicillin susceptible Staphylococcus aureus infection as the cause of diseases classified elsewhere; F20.0 Paranoid schizophrenia; I10 Essential (primary) hypertension; I69.398 Other sequelae of cerebral infarction; M21.372 Foot drop, left foot
CPT/HCPCS: 36415; 36569; 71010; 76937; 80048; 80053; 80202; 82550; 82553; 83690; 83880; 84484; 85007; 85025; 85610; 85730; 87040; 87070; 87081; 87181; 87205; 93005; 94640; 94664; 97803